=== PATIENT | male | born 1960 | race Caucasian/White ===

== ENCOUNTER 2018-06-24 03:30 | Observation (INO) ==
[2018-06-24] MEDS ORDERED: Sod Chloride 0.9% Inj 1,000 ML IV.SIG ONE (03:50)
[2018-06-24] MEDS ORDERED: Morphine Inj 4 MG/ML Vial IV.PUSH ONE (03:50)
--- NOTE | 2018-06-24 04:09 | ED ---
HPI General Chief complaint: Medical Clearance Stated complaint: Medical Time Seen by Provider: 06/24/18 03:45 Source: EMS Mode of arrival: EMS Limitations: other (Down syndrome, mental retardation, noncommunicative) History of Present Illness HPI narrative: The history is extremely limited since patient is noncommunicative. As per EMS patient has been leaning forward while sitting up and constantly moaning for past 1 week. There is some questionable constipation history. The moaning and discomfort appear to be worse last night and hence he has been sent to the emergency room to be evaluated. Patient has history of Down syndrome and mental retardation. I was told the family is on their way to see the patient. Related Data Home Medications Medication Instructions Recorded Confirmed guaifenesin [Mucinex] 600 mg PO Q12H 06/24/18 06/24/18 loratadine 10 mg PO DAILY PRN 06/24/18 06/24/18 pantoprazole 40 mg PO DAILY 06/24/18 06/24/18 polyethylene glycol 3350 [Miralax] 17 g PO DAILY 06/24/18 06/24/18 Allergies Allergy/AdvReac Type Severity Reaction Status Date / Time penicillin G Allergy Severe Hives Verified 06/24/18 07:35 Review of Systems ROS Unobtainable ROS Unobtainable: unobtainable due to mental condition ROS: all other systems reviewed are negative PMFSH History History Provided By: Setter Off / EMT Medical History Medical History Down's syndrome (Acute) Family History Family History Other Family history non-contributory Social History Social History Substance History: Unable to Obtain (Nursing reports family mentioned cannabis oil ) Second Hand Smoke Exposure: No Smoking Status: Never smoker How Often Do You Have a Drink Containing Alcohol: Never Recent Travel in [place] within the Last 8 Weeks: No Recent Out of Country Travel within the Last 8 Weeks: No Exam Narrative Exam Narrative: GENERAL: Awake, significant distress, nonverbal, noncommunicative, constant moaning SKIN: Focused skin assessment warm/dry. HEAD: Atraumatic. Normocephalic. EYES: Pupils equal and round. No scleral icterus. No injection or drainage. ENT: No nasal bleeding or discharge. Dry mucous membrane. NECK: Trachea midline. No JVD. CARDIOVASCULAR: Regular rate and rhythm. No murmur appreciated. RESPIRATORY: No accessory muscle use. Clear to auscultation. Breath sounds equal bilaterally. GASTROINTESTINAL: Abdomen soft, non-tender, nondistended. Hepatic and splenic margins not palpable. MUSCULOSKELETAL: No obvious deformities. No clubbing. No cyanosis. No edema. Neurology: Noncommunicative awake and sitting up, leaning forward and constantly moaning PSYCHIATRIC: Anxious Course Initial Documented Vital Signs Pulse Rate 102 H 06/24/18 03:37 Blood Pressure 160/80 H 06/24/18 03:37 Pulse Oximetry 98 06/24/18 03:37 Last Documented Vital Signs Temperature 99.7 F H 06/27/18 19:53 Pulse Rate 101 H 06/27/18 19:53 Respiratory Rate 12 06/27/18 11:22 Blood Pressure 112/63 06/27/18 19:53 Pulse Oximetry 92 L 06/27/18 19:53 Medical Decision Making [facility] [place] Narrative Medical decision making narrative: 4:08 AM it is difficult to obtain any history from this patient given his condition. I have ordered labs and a CT scan of the abdomen and pelvis. He will be getting IV fluid bolus, pain medication and 0.5 mg of Ativan. 5:23 AM blood test results have come back and lipase is elevated. White blood cell count is elevated as well. Patient was given another dose of pain medication. Awaiting for the CAT scan to be done and resulted. I spoke with his mother and sister who are in the room currently. As per them patient has progressively fairing poorly. He has been having shuffling gait for past few weeks. However since 4 PM yesterday he has been constantly moaning like he is in pain and while going to the bathroom just sat down and did not want to get up and walk anymore. This is not his normal self. 6:[address] scan is read as negative with a significantly distended bladder. Family confirmed that patient has not urinated in a while. I have ordered for Crane catheter placement. Since patient required significant amount of pain medication for pain control I decided to admit him as. The hospitalist has accepted the patient. I explained this to the family and they are okay with the decision. Medical Screen Exam Complete: Yes Emergency Medical Condition: Yes Lab Data Result diagrams: 06/27/18 06:46 06/27/18 06:46 Lab Results 06/24/18 06/24/18 06/24/18 Range/Units 04:08 04:08 04:08 WBC 14.1 H (4.0-11.0) th/mm3 RBC 3.94 L (4.50-5.90) mil/mm3 Hgb 13.3 (13.0-17.0) gm/dL Hct 39.6 (39.0-51.0) % MCV 100.7 H (80.0-100.0) fL MCH 33.7 (27.0-34.0) pg MCHC 33.5 (32.0-36.0) % RDW 15.7 (11.6-17.2) % Plt Count 381 (150-450) th/mm3 MPV 7.5 (7.0-11.0) fL Prelim Diff (Auto) Neut % (Auto) 91.0 H (16.0-70.0) % Lymph % (Auto) 3.6 L (9.0-44.0) % Parke % (Auto) 4.4 (0.0-8.0) % Eos % (Auto) 0.0 (0.0-4.0) % Baso % (Auto) 1.0 (0.0-2.0) % Neut # (Auto) 12.8 H (1.8-7.7) th/mm3 Lymph # (Auto) 0.5 L (1.0-4.8) th/mm3 Parke # (Auto) 0.6 (0.0-0.9) th/mm3 Eos # (Auto) 0.0 (0.0-0.4) th/mm3 Baso # (Auto) 0.1 (0.0-0.2) th/mm3 WBC Differential . Seg Neuts % (Manual) (16-70) % Band Neuts % (Manual) (0-6) % Lymphocytes % (Manual) (9-44) % Monocytes % (Manual) (0-8) % Abs Neuts (Manual) (1.8-7.7) th/mm3 Differential Comment Auto diff final Platelet Estimate (Normal) Platelet Morphology (Normal) Sodium 135 L (136-145) meq/L Potassium 4.5 (3.5-5.1) meq/L Chloride 98 (98-107) meq/L Carbon Dioxide 21.5 (21.0-32.0) meq/L Anion Gap 16 H (5-15) meq/L BUN 13 (7-18) mg/dL Creatinine 1.45 H (0.60-1.30) mg/dL Estimated GFR 50 L (>89) mL/min Random Glucose 177 H (74-106) mg/dL Calcium 9.1 (8.5-10.1) mg/dL Magnesium 2.1 (1.5-2.5) mg/dL Total Bilirubin 0.7 (0.2-1.0) mg/dL AST 122 H (15-37) U/L ALT 38 (12-78) U/L Alkaline Phosphatase 80 (45-117) U/L Total Protein 8.2 (6.4-8.2) g/dL Albumin 3.8 (3.4-5.0) g/dL Triglycerides 72 (42-150) mg/dL Cholesterol 148 (120-200) mg/dL LDL Cholesterol, Calc 70 (0-99) mg/dL HDL Cholesterol 63.9 H (40.0-60.0) mg/dL Cholesterol/HDL Ratio 2.31 Ratio Lipase 762 H (73-393) U/L Urine Color (Yellw/Straw) Urine Clarity (Clear) Urine pH (5.0-8.5) Ur Specific [place] (1.002-1.035) Urine Protein (Neg-Trace) mg/dL Urine Glucose (UA) (Negative) mg/dL Urine Ketones (Negative) mg/dL Urine Occult Blood (Negative) Urine Nitrate (Negative) Urine Bilirubin (Negative) Urine Urobilinogen (Less than 2) mg/dL Ur Leukocyte Esterase (Negative) Urine RBC (0-3) /hpf Urine WBC (0-5) /hpf Urine Mucus (Occasional) /lpf Micro UA Comment Ur Microscopic Review Urine Culture Comments Hepatitis A IgM Ab (Nonreactive) Hep Bs Antigen (Nonreactive) Hep B Core IgM Ab (Nonreactive) Hep C IgG Ab (Nonreactive) 06/24/18 06/25/18 06/25/18 Range/Units 06:40 04:15 04:15 WBC 7.7 (4.0-11.0) th/mm3 RBC 3.11 L (4.50-5.90) mil/mm3 Hgb 10.8 L D (13.0-17.0) gm/dL Hct 30.8 L (39.0-51.0) % MCV 99.0 (80.0-100.0) fL MCH 34.9 H (27.0-34.0) pg MCHC 35.2 (32.0-36.0) % RDW 15.7 (11.6-17.2) % Plt Count 241 D (150-450) th/mm3 MPV 7.1 (7.0-11.0) fL Prelim Diff (Auto) Manual diff required Neut % (Auto) (16.0-70.0) % Lymph % (Auto) (9.0-44.0) % Parke % (Auto) (0.0-8.0) % Eos % (Auto) (0.0-4.0) % Baso % (Auto) (0.0-2.0) % Neut # (Auto) (1.8-7.7) th/mm3 Lymph # (Auto) (1.0-4.8) th/mm3 Parke # (Auto) (0.0-0.9) th/mm3 Eos # (Auto) (0.0-0.4) th/mm3 Baso # (Auto) (0.0-0.2) th/mm3 WBC Differential Manual diff final Seg Neuts % (Manual) 80 H (16-70) % Band Neuts % (Manual) 5 (0-6) % Lymphocytes % (Manual) 9 (9-44) % Monocytes % (Manual) 6 (0-8) % Abs Neuts (Manual) 6.5 (1.8-7.7) th/mm3 Differential Comment . Platelet Estimate Normal (Normal) Platelet Morphology Normal (Normal) Sodium 140 (136-145) meq/L Potassium 3.8 (3.5-5.1) meq/L Chloride 103 (98-107) meq/L Carbon Dioxide 29.2 (21.0-32.0) meq/L Anion Gap 8 (5-15) meq/L BUN 7 (7-18) mg/dL Creatinine 1.05 (0.60-1.30) mg/dL Estimated GFR 73 L (>89) mL/min Random Glucose 107 H (74-106) mg/dL Calcium 8.0 L D (8.5-10.1) mg/dL Magnesium (1.5-2.5) mg/dL Total Bilirubin 0.4 (0.2-1.0) mg/dL AST 156 H (15-37) U/L ALT 44 (12-78) U/L Alkaline Phosphatase 56 (45-117) U/L Total Protein 6.0 L D (6.4-8.2) g/dL Albumin 2.6 L D (3.4-5.0) g/dL Triglycerides (42-150) mg/dL Cholesterol (120-200) mg/dL LDL Cholesterol, Calc (0-99) mg/dL HDL Cholesterol (40.0-60.0) mg/dL Cholesterol/HDL Ratio Ratio Lipase 538 H (73-393) U/L Urine Color Cuming (Yellw/Straw) Urine Clarity Clear (Clear) Urine pH 5.0 (5.0-8.5) Ur Specific [place] 1.011 (1.002-1.035) Urine Protein Negative (Neg-Trace) mg/dL Urine Glucose (UA) Negative (Negative) mg/dL Urine Ketones Negative (Negative) mg/dL Urine Occult Blood Negative (Negative) Urine Nitrate Positive H (Negative) Urine Bilirubin Negative (Negative) Urine Urobilinogen 4 or greater (Less than 2) mg/dL Ur Leukocyte Esterase Negative (Negative) Urine RBC Less than 1 (0-3) /hpf Urine WBC 1 (0-5) /hpf Urine Mucus Few H (Occasional) /lpf Micro UA Comment Culture indicated Ur Microscopic Review Not Reportable Urine Culture Comments Culture indicated Hepatitis A IgM Ab (Nonreactive) Hep Bs Antigen (Nonreactive) Hep B Core IgM Ab (Nonreactive) Hep C IgG Ab (Nonreactive) 06/25/18 06/26/18 06/26/18 Range/Units 12:28 05:35 05:35 WBC 10.4 (4.0-11.0) th/mm3 RBC 3.65 L (4.50-5.90) mil/mm3 Hgb 12.9 L D (13.0-17.0) gm/dL Hct 36.0 L (39.0-51.0) % MCV 98.8 (80.0-100.0) fL MCH 35.3 H (27.0-34.0) pg MCHC 35.8 (32.0-36.0) % RDW 15.3 (11.6-17.2) % Plt Count 265 (150-450) th/mm3 MPV 7.5 (7.0-11.0) fL Prelim Diff (Auto) Neut % (Auto) 80.3 H (16.0-70.0) % Lymph % (Auto) 8.3 L (9.0-44.0) % Parke % (Auto) 11.0 H (0.0-8.0) % Eos % (Auto) 0.1 (0.0-4.0) % Baso % (Auto) 0.3 (0.0-2.0) % Neut # (Auto) 8.3 H (1.8-7.7) th/mm3 Lymph # (Auto) 0.9 L (1.0-4.8) th/mm3 Parke # (Auto) 1.1 H (0.0-0.9) th/mm3 Eos # (Auto) 0.0 (0.0-0.4) th/mm3 Baso # (Auto) 0.0 (0.0-0.2) th/mm3 WBC Differential . Seg Neuts % (Manual) (16-70) % Band Neuts % (Manual) (0-6) % Lymphocytes % (Manual) (9-44) % Monocytes % (Manual) (0-8) % Abs Neuts (Manual) (1.8-7.7) th/mm3 Differential Comment Auto diff final Platelet Estimate (Normal) Platelet Morphology (Normal) Sodium 138 (136-145) meq/L Potassium 3.5 (3.5-5.1) meq/L Chloride 98 (98-107) meq/L Carbon Dioxide 29.7 (21.0-32.0) meq/L Anion Gap 10 (5-15) meq/L BUN 5 L (7-18) mg/dL Creatinine 0.85 (0.60-1.30) mg/dL Estimated GFR Greater than 89 (>89) mL/min Random Glucose 106 (74-106) mg/dL Calcium 8.2 L (8.5-10.1) mg/dL Magnesium (1.5-2.5) mg/dL Total Bilirubin 0.7 (0.2-1.0) mg/dL AST 115 H (15-37) U/L ALT 51 (12-78) U/L Alkaline Phosphatase 69 (45-117) U/L Total Protein 6.8 D (6.4-8.2) g/dL Albumin 2.6 L (3.4-5.0) g/dL Triglycerides (42-150) mg/dL Cholesterol (120-200) mg/dL LDL Cholesterol, Calc (0-99) mg/dL HDL Cholesterol (40.0-60.0) mg/dL Cholesterol/HDL Ratio Ratio Lipase 491 H (73-393) U/L Urine Color (Yellw/Straw) Urine Clarity (Clear) Urine pH (5.0-8.5) Ur Specific [place] (1.002-1.035) Urine Protein (Neg-Trace) mg/dL Urine Glucose (UA) (Negative) mg/dL Urine Ketones (Negative) mg/dL Urine Occult Blood (Negative) Urine Nitrate (Negative) Urine Bilirubin (Negative) Urine Urobilinogen (Less than 2) mg/dL Ur Leukocyte Esterase (Negative) Urine RBC (0-3) /hpf Urine WBC (0-5) /hpf Urine Mucus (Occasional) /lpf Micro UA Comment Ur Microscopic Review Urine Culture Comments Hepatitis A IgM Ab Nonreactive (Nonreactive) Hep Bs Antigen Nonreactive (Nonreactive) Hep B Core IgM Ab Nonreactive (Nonreactive) Hep C IgG Ab Nonreactive (Nonreactive) 06/27/18 06/27/18 Range/Units 06:46 06:46 WBC 8.4 (4.0-11.0) th/mm3 RBC 3.81 L (4.50-5.90) mil/mm3 Hgb 12.9 L (13.0-17.0) gm/dL Hct 38.1 L (39.0-51.0) % MCV 100.2 H (80.0-100.0) fL MCH 33.9 (27.0-34.0) pg MCHC 33.8 (32.0-36.0) % RDW 15.1 (11.6-17.2) % Plt Count 253 (150-450) th/mm3 MPV 7.5 (7.0-11.0) fL Prelim Diff (Auto) Neut % (Auto) 76.7 H (16.0-70.0) % Lymph % (Auto) 11.6 (9.0-44.0) % Parke % (Auto) 11.0 H (0.0-8.0) % Eos % (Auto) 0.2 (0.0-4.0) % Baso % (Auto) 0.5 (0.0-2.0) % Neut # (Auto) 6.4 (1.8-7.7) th/mm3 Lymph # (Auto) 1.0 (1.0-4.8) th/mm3 [place]ke # (Auto) 0.9 (0.0-0.9) th/mm3 Eos # (Auto) 0.0 (0.0-0.4) th/mm3 Baso # (Auto) 0.0 (0.0-0.2) th/mm3 WBC Differential . Seg Neuts % (Manual) (16-70) % Band Neuts % (Manual) (0-6) % Lymphocytes % (Manual) (9-44) % Monocytes % (Manual) (0-8) % Abs Neuts (Manual) (1.8-7.7) th/mm3 Differential Comment Auto diff final Platelet Estimate (Normal) Platelet Morphology (Normal) Sodium 135 L (136-145) meq/L Potassium 3.4 L (3.5-5.1) meq/L Chloride 96 L (98-107) meq/L Carbon Dioxide 31.1 (21.0-32.0) meq/L Anion Gap 8 (5-15) meq/L BUN 9 (7-18) mg/dL Creatinine 0.88 (0.60-1.30) mg/dL Estimated GFR Greater than 89 (>89) mL/min Random Glucose 129 H (74-106) mg/dL Calcium 8.4 L (8.5-10.1) mg/dL Magnesium (1.5-2.5) mg/dL Total Bilirubin 0.9 (0.2-1.0) mg/dL AST 58 H (15-37) U/L ALT 40 (12-78) U/L Alkaline Phosphatase 72 (45-117) U/L Total Protein 6.9 (6.4-8.2) g/dL Albumin 2.4 L (3.4-5.0) g/dL Triglycerides (42-150) mg/dL Cholesterol (120-200) mg/dL LDL Cholesterol, Calc (0-99) mg/dL HDL Cholesterol (40.0-60.0) mg/dL Cholesterol/HDL Ratio Ratio Lipase 382 (73-393) U/L Urine Color (Yellw/Straw) Urine Clarity (Clear) Urine pH (5.0-8.5) Ur Specific [place] (1.002-1.035) Urine Protein (Neg-Trace) mg/dL Urine Glucose (UA) (Negative) mg/dL Urine Ketones (Negative) mg/dL Urine Occult Blood (Negative) Urine Nitrate (Negative) Urine Bilirubin (Negative) Urine Urobilinogen (Less than 2) mg/dL Ur Leukocyte Esterase (Negative) Urine RBC (0-3) /hpf Urine WBC (0-5) /hpf Urine Mucus (Occasional) /lpf Micro UA Comment Ur Microscopic Review Urine Culture Comments Hepatitis A IgM Ab (Nonreactive) Hep Bs Antigen (Nonreactive) Hep B Core IgM Ab (Nonreactive) Hep C IgG Ab (Nonreactive) Imaging Data Radiologist's impression: Abdomen/Pelvis CT 06/24/18 03:50 CONCLUSION: 1. No acute abnormality. Chest X-Ray 06/24/18 03:51 CONCLUSION: Negative examination. Discharge Plan Discharge Disposition Patient Disposition: 30 Still Patient Physicians Team ED Provider: Rich Olsen Primary Care Provider: Julian Guerrero Attending Provider: Julian Guerrero Other Providers: Arabella Garcia Status ED Status: Left Department Discharge Information Discharge Date/Time: 06/24/18 08:50
[2018-06-24 04:23] LABS: Baso # (Auto) 0.1 th/mm3 (0.0-0.2); Hematocrit 39.6 % (39.0-51.0); Hemoglobin 13.3 gm/dL (13.0-17.0); Lymph # (Auto) 0.5 th/mm3 (1.0-4.8); Lymph % (Auto) 3.6 % (9.0-44.0); Mean Corpuscular HGB Conc 33.5 % (32.0-36.0); Mean Corpuscular Hemoglobin 33.7 pg (27.0-34.0); Mean Corpuscular Volume 100.7 fL (80.0-100.0); Mean Platelet Volume 7.5 fL (7.0-11.0); Mono # (Auto) 0.6 th/mm3 (0.0-0.9); Mono % (Auto) 4.4 % (0.0-8.0); Neut # (Auto) 12.8 th/mm3 (1.8-7.7); Platelet Count 381 th/mm3 (150-450); Red Blood Count 3.94 mil/mm3 (4.50-5.90); Red Cell Distribution Width 15.7 % (11.6-17.2); White Blood Count 14.1 th/mm3 (4.0-11.0)
[2018-06-24] MEDS ORDERED: Morphine Sulfate Inj 8 MG/ML Vial IV.PUSH ONE (04:38)
[2018-06-24 04:41] LABS: Alkaline Phosphatase 80 U/L (45-117); Total Protein 8.2 g/dL (6.4-8.2)
[2018-06-24 04:51] LABS: Alanine Aminotransferase 38 U/L (12-78); Albumin 3.8 g/dL (3.4-5.0); Anion Gap 16 meq/L (5-15); Aspartate Aminotransferase 122 U/L (15-37); Blood Urea Nitrogen 13 mg/dL (7-18); Calcium 9.1 mg/dL (8.5-10.1); Carbon Dioxide 21.5 meq/L (21.0-32.0); Chloride 98 meq/L (98-107); Glomerular Filtration Rate 50 mL/min (>89); Glucose,Random 177 mg/dL (74-106); Lipase 762 U/L (73-393); Magnesium 2.1 mg/dL (1.5-2.5); Potassium 4.5 meq/L (3.5-5.1); Sodium 135 meq/L (136-145)
[2018-06-24] MEDS ORDERED: HYDROmorphone PF Inj 2 MG/ML Vial IV.PUSH ONE (05:40)
--- NOTE | 2018-06-24 06:40 | CT ---
EXAM DATE: 06/24/2018 6:13 AM EST AGE/SEX: 58 years / Male INDICATIONS: Abdominal pain. CLINICAL DATA: This is the patient's initial encounter. Patient reports that signs and symptoms have been present for 1 day and indicates a pain score of Nonresponsive. MEDICAL/SURGICAL HISTORY: Dementia. Down Syndrome None. RADIATION DOSE: 10.03 CTDI (mGy) COMPARISON: No prior exams available for comparison. TECHNIQUE: Multiple contiguous axial images were obtained through the abdomen. Images were obtained using multiple row detector helical technique. Using automated exposure control and adjustment of the mA and/or kV according to patient size, radiation dose was kept as low as reasonably achievable to o btain optimal diagnostic quality images. DICOM format image data is available electronically for rev iew and comparison. FINDINGS: Lower Lungs: The visualized lower lungs are clear. Liver: The liver has a homogeneous density without space-occupying lesion. There is no dilation of th e biliary tree. Gallbladder is unremarkable. Spleen: Homogeneous density without enlargement. Pancreas: Unremarkable without mass or calcification. 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 Kidneys: Normal in size and shape. No evidence of mass or hydronephrosis. Adrenal Glands: Unremarkable. Aorta: The aorta and proximal iliac vessels are grossly unremarkable without aneurysmal dilation. Bowel/Mesentery: The bowel loops are grossly unremarkable. The cecum and sigmoid colon have a normal configuration. Abdominal Wall: Tiny ventral hernia containing omental fat within the infraumbilical region.. Retroperitoneum: No evidence of adenopathy in the retrocrural, para-aortic, or deep pelvic regions. Bladder: Contours are smooth. Reproductive Organs: No abnormal masses or calcifications seen. Inguinal: The inguinal region is unremarkable without evidence of adenopathy. Bony Structures: Unremarkable. CONCLUSION: 1. No acute abnormality. Electronically signed by: Brandin Tovar MD 06/24/2018 6:38 AM EST
--- NOTE | 2018-06-24 06:48 | XR ---
EXAM DATE: 06/24/2018 6:01 AM EST AGE/SEX: 58 years / Male INDICATIONS: Chest pain. CLINICAL DATA: This is the patient's initial encounter. Patient reports that signs and symptoms have been present for 4 - 6 days and indicates a pain score of 10/10. MEDICAL/SURGICAL HISTORY: . Downs Syndrome None. COMPARISON: [facility], XR CHEST PA AND LAT, 02/05/2016. . FINDINGS: A single AP view of the chest demonstrates the lungs to be symmetrically aerated without evidence of mass, infiltrate or effusion. The cardiomediastinal contours are unremarkable. Osseous structures a re intact. CONCLUSION: Negative examination. Electronically signed by: Brandin Tovar MD 06/24/2018 6:46 AM EST
[2018-06-24] MEDS ORDERED: Bisacodyl 10 MG Supp RECTAL PRN (06:51)
[2018-06-24] MEDS ORDERED: Acetaminophen 325 MG Tablet PO PRN (06:51)
[2018-06-24] MEDS ORDERED: HYDROmorphone PF Inj 2 MG/ML Vial IV.PUSH PRN (06:53)
[2018-06-24] MEDS ORDERED: Pantoprazole Inj 40 MG Vial IV.PUSH SCH (07:00)
[2018-06-24 07:03] LABS: Bilirubin,Urine Negative (Negative); Clarity,Urine Clear (Clear); Color,Urine Orange (Yellw/Straw); Glucose,Urine (UA) Negative (Negative); Leukocyte Esterase,Urine Negative (Negative); Mucus,Urine Few /lpf (Occasional); Nitrite,Urine Positive (Negative); Specific Gravity,Urine 1.011 (1.002-1.035); Urobilinogen,Urine 4 or Greater mg/dL (Less than 2)
[2018-06-24] MEDS: Sod Chloride 0.9% Inj 1,000 ML IV.CONT SCH ×2 (07:07→16:08)
[2018-06-24] MEDS: Senna/Docusate Sodium 8.6/50 MG Tablet PO SCH ×2 (09:33→20:14)
--- NOTE | 2018-06-24 10:53 | P.HPIM ---
History of Present Illness Service: [facility] Primary Care Physician: Julian Guerrero MD History of Present Illness: 58-year-old male with Down syndrome brought in by EMS. The patient cannot contribute to the history. History obtained from EMR and family members at bedside. Apparently he has been having what appeared to be abdominal discomfort for the past week and has been leaning forward while sitting up. Family report the pain seemed to have gotten worse yesterday which prompted the ED visit. Workup in the emergency room is suggestive of acute pancreatitis and UTI. The patient was also retaining urine, Crane catheter has been placed. Patient received Ativan, morphine, and Dilaudid in the emergency room and is currently sedated. There has been no reports of vomiting. No new medications. However per discussion with nursing, there was some mention of over-the- counter cannabis oil but the family at bedside today denies any new medications. - Diagnosis (1) Acute pancreatitis (2) UTI (urinary tract infection) Review of Systems unobtainable due to mental status PMFSH - History History Provided By: Family Member - Medical History Medical History: Medical History (Last Reviewed 06/24/18 @ 13:55 by Abdullahi Springer MD) Dementia Developmental disability Down's syndrome Peptic ulcer Seasonal allergies - Family History Family History: Family History (Last Updated 06/24/18 @ 13:56 by Abdullahi Springer MD) Other Family history non-contributory - Social History I have reviewed the patient's Social History: Yes - Tobacco History Second Hand Smoke Exposure: No Smoking Status: Never smoker - Alcohol History How Often Do You Have a Drink Containing Alcohol: Never - Substance Use History Substance History: Unable to Obtain (Nursing reports family mentioned cannabis oil ) - Travel History Recent Travel in the [place] Within the Last 8 Weeks: No Recent Travel Out of the Country Within the Last 8 Weeks: No - Immunization History Tetanus Immunization: >5 Years Medications and Allergies Active Medications: Active Medications Acetaminophen (Tylenol) 650 mg PO Q4H PRN PRN Reason: Temp > 100.4 Al Hydroxide/Mg Hydroxide (Milk Of Magnesia Liq) 30 ml PO Q12H PRN PRN Reason: Mild Constipation Bisacodyl (Dulcolax Supp) 10 mg RECTAL DAILY PRN PRN Reason: SEVERE CONSITIPATION Hydromorphone HCl (Dilaudid Pf Inj) 1 mg IV.PUSH Q4H PRN PRN Reason: PAIN 6-10 Sodium Chloride (Ns Inj) 1,000 mls @ 100 mls/hr IV.CONT .Q10H [facility] Last Admin: 06/24/18 07:07 Dose: 100 mls/hr Lactulose (Lactulose Liq) 30 ml PO DAILY PRN PRN Reason: SEVERE CONSITIPATION Ondansetron HCl (Zofran Inj) 4 mg IV.PUSH Q6H PRN PRN Reason: NAUSEA OR VOMITING Pantoprazole Sodium (Protonix Inj) 40 mg IV.PUSH Q12H [facility] Last Admin: 06/24/18 07:07 Dose: 40 mg Senna/Docusate Sodium (Taya-Colace) 1 tab PO BID [facility] Last Admin: 06/24/18 09:33 Dose: Not Given Sennosides (Senokot) 17.2 mg PO Q12H PRN PRN Reason: Moderate Constipation Sodium Chloride (Ns Flush) 2 ml IV.FLUSH PRN PRN PRN Reason: FLUSH AFTER USING IV ACCESS Allergies Allergy/AdvReac Type Severity Reaction Status Date / Time penicillin G Allergy Severe Hives Verified 06/24/18 07:35 Home Medications Medication Instructions Recorded Confirmed Type guaifenesin [Mucinex] 600 mg PO Q12H 06/24/18 06/24/18 History loratadine 10 mg PO DAILY PRN 06/24/18 06/24/18 History pantoprazole 40 mg PO DAILY 06/24/18 06/24/18 History polyethylene glycol 3350 [Miralax] 17 g PO DAILY 06/24/18 06/24/18 History Exam Vital signs: Vital Signs 06/24/18 03:37 06/24/18 04:00 06/24/18 04:30 Temperature Pulse Rate 102 H 107 H Respiratory Rate 22 22 Blood Pressure 160/80 H 183/102 H Pulse Oximetry 98 97 06/24/18 05:13 06/24/18 05:45 06/24/18 05:56 Temperature Pulse Rate 105 H 104 H 82 Respiratory Rate 15 20 18 Blood Pressure 190/85 H 155/109 H 100/50 L Pulse Oximetry 97 97 95 06/24/18 06:20 06/24/18 07:00 06/24/18 08:15 Temperature Pulse Rate 77 79 Respiratory Rate 16 18 16 Blood Pressure 94/55 L 90/52 L Pulse Oximetry 97 98 06/24/18 08:46 06/24/18 08:59 06/24/18 09:11 Temperature 97.8 F Pulse Rate 79 Respiratory Rate 16 18 Blood Pressure 98/54 L Pulse Oximetry 92 L 91 L Intake & Output 06/23/18 06/24/18 06/24/18 18:59 06:59 18:59 Intake Total 1000 / 1000 Output Total 725 / 725 Balance 275 / 275 Weight 77.111 kg Intake: IV 1000 / 1000 NS Inj 1,000 ML @ Wide Open IV. 1000 / 1000 SIG BOLUS ONE Rx#:[id number] Output: Urine Amount (Catheter) 725 / 725 Indwelling Urethral Catheter 725 / 725 Other: Weight On Admission 77.111 kg Narrative: GENERAL: Male patient with features of Down syndrome. Sedated. CARDIOVASCULAR: Normal rate and regular rhythm without murmurs, gallops, or rubs. RESPIRATORY:Breath sounds equal and clear to auscultation bilaterally. GASTROINTESTINAL: Abdomen soft, non-tender, non-distended. Normal active bowel sounds MUSCULOSKELETAL: Extremities without cyanosis, or edema. NEURO: Sedated. Results - Labs CBC & Chem 7: 06/24/18 04:08 06/24/18 04:08 Labs: Short CBC 06/24/18 Range/Units 04:08 WBC 14.1 H (4.0-11.0) th/mm3 Hgb 13.3 (13.0-17.0) gm/dL Hct 39.6 (39.0-51.0) % Plt Count 381 (150-450) th/mm3 BMP 06/24/18 04:08 Sodium 135 L Potassium 4.5 Chloride 98 Carbon Dioxide 21.5 BUN 13 Creatinine 1.45 H Calcium 9.1 Liver Function 06/24/18 Range/Units 04:08 Total Bilirubin 0.7 (0.2-1.0) mg/dL AST 122 H (15-37) U/L ALT 38 (12-78) U/L Alkaline Phosphatase 80 (45-117) U/L Albumin 3.8 (3.4-5.0) g/dL Urine 06/24/18 Range/Units 06:40 Urine Color [place] (Yellw/Straw) Urine Clarity Clear (Clear) Urine pH 5.0 (5.0-8.5) Ur Specific [place] 1.011 (1.002-1.035) Urine Protein Negative (Neg-Trace) mg/dL Urine Glucose (UA) Negative (Negative) mg/dL - Imaging Impressions Abdomen/Pelvis CT 06/24/18 03:50 CONCLUSION: 1. No acute abnormality. Chest X-Ray 06/24/18 03:51 CONCLUSION: Negative examination. Caprini VTE Risk Assessment Caprini VTE Risk Assessment: Moderate/High Risk (score >= 2) Caprini Risk Assessment Model: Point Value = 1 Point Value = 2 Point Value = 3 Point Value = 5 Age 41-60 Minor surgery BMI > 25 kg/m2 Swollen legs Varicose veins or History of unexplained or recurrent spontaneous Oral contraceptives or hormone replacement Sepsis (< 1 month) Serious lung disease, including pneumonia (< 1 month) Abnormal pulmonary function Acute myocardial infarction Congestive heart failure (< 1 month) History of inflammatory bowel disease Medical patient at bed rest Age 61-74 Arthroscopic surgery Major open surgery (> 45 min) Laparoscopic surgery (> 45 min) Malignancy Confined to bed (> 72 hours) Immobilizing plaster cast Central venous access Age >= 75 History of VTE Family history of VTE Factor V Leiden Prothrombin [id number] Lupus anticoagulant Anticardiolipin antibodies Elevated serum homocysteine Heparin-induced thrombocytopenia Other congenital or acquired thrombophilia Stroke (< 1 month) Elective arthroplasty Hip, pelvis, or leg fracture Acute spinal cord injury (< 1 month) Prophylaxis Regimen: Total Risk Factor Score Risk Level Prophylaxis Regimen 0-1 Low Early ambulation 2 Moderate Order ONE of the following: *Sequential Compression Device (SCD) *Heparin 5000 units SQ BID 3-4 Higher Order ONE of the following medications: *Heparin 5000 units SQ TID *Enoxaparin/Lovenox 40 mg SQ daily (WT < 150 kg, CrCl > 30 mL/min) *Enoxaparin/Lovenox 30 mg SQ daily (WT < 150 kg, CrCl > 10-29 mL/min) *Enoxaparin/Lovenox 30 mg SQ BID (WT < 150 kg, CrCl > 30 mL/min) AND/OR *Sequential Compression Device (SCD) 5 or more Highest Order ONE of the following medications: *Heparin 5000 units SQ TID (Preferred with Epidurals) *Enoxaparin/Lovenox 40 mg SQ daily (WT < 150 kg, CrCl > 30 mL/min) *Enoxaparin/Lovenox 30 mg SQ daily (WT < 150 kg, CrCl > 10-29 mL/min) *Enoxaparin/Lovenox 30 mg SQ BID (WT < 150 kg, CrCl > 30 mL/min) AND *Sequential Compression Device (SCD) Assessment and Plan - Assessment (1) Acute pancreatitis Code(s): K85.90 - Acute pancreatitis without necrosis or infection, unspecified Status: Acute (2) UTI (urinary tract infection) Code(s): N39.0 - Urinary tract infection, site not specified Status: Acute - Plan 58-year-old male with Down syndrome admitted with acute pancreatitis and UTI. Acute pancreatitis: Etiology unclear at this point. No new medications except for cannabis oil use reported to the nurse. Content of these medications are unknown as they are not currently regulated. - Check lipids - CT of the abdomen unremarkable. - Supportive care with IV fluid. Pain control. - Keep n.p.o. for today. Abnormal urinalysis: - Unable to tell if he is having symptoms. - Will give a dose of Levaquin now - Follow urine cultures GI prophylaxis: PPI. Stool softener PRN constipation. DVT PPx: SCDs H&P: Quality - VTE Deep Vein Thrombosis/Pulmonary Embolism Present on Admission: Yes
[2018-06-24 12:40] LABS: Chol/HDL Ratio 2.31 Ratio; HDL Cholesterol 63.9 mg/dL (40.0-60.0)
[2018-06-25] MEDS: Sod Chloride 0.9% Inj 1,000 ML IV.CONT SCH ×2 (02:17→13:14)
[2018-06-25 04:37] LABS: Hematocrit 30.8 % (39.0-51.0); Hemoglobin 10.8 gm/dL (13.0-17.0); Mean Corpuscular HGB Conc 35.2 % (32.0-36.0); Mean Corpuscular Hemoglobin 34.9 pg (27.0-34.0); Mean Platelet Volume 7.1 fL (7.0-11.0); Platelet Count 241 th/mm3 (150-450); Red Blood Count 3.11 mil/mm3 (4.50-5.90); Red Cell Distribution Width 15.7 % (11.6-17.2); White Blood Count 7.7 th/mm3 (4.0-11.0)
[2018-06-25 05:05] LABS: Alanine Aminotransferase 44 U/L (12-78); Albumin 2.6 g/dL (3.4-5.0); Alkaline Phosphatase 56 U/L (45-117); Anion Gap 8 meq/L (5-15); Aspartate Aminotransferase 156 U/L (15-37); Blood Urea Nitrogen 7 mg/dL (7-18); Carbon Dioxide 29.2 meq/L (21.0-32.0); Chloride 103 meq/L (98-107); Glomerular Filtration Rate 73 mL/min (>89); Glucose,Random 107 mg/dL (74-106); Lipase 538 U/L (73-393); Potassium 3.8 meq/L (3.5-5.1); Sodium 140 meq/L (136-145)
[2018-06-25] MEDS: Senna/Docusate Sodium 8.6/50 MG Tablet PO SCH ×2 (08:19→21:15)
[2018-06-25 08:40] LABS: Lymphocytes 9 % (9-44); Monocytes 6 % (0-8)
[2018-06-25 08:41] LABS: Platelet Estimate Normal (Normal); Platelet Morphology Normal (Normal)
--- NOTE | 2018-06-25 10:00 | P.PNFP ---
Subjective Interval history: mother and sister at bedside. pt coughing. lethargic, usually walks with assist some Results - Labs Result diagrams: 06/25/18 04:15 06/25/18 04:15 Abnormal lab results 06/24/18 06/25/18 06/25/18 Range/Units 04:08 04:15 04:15 RBC 3.11 L (4.50-5.90) mil/mm3 Hgb 10.8 L D (13.0-17.0) gm/dL Hct 30.8 L (39.0-51.0) % MCH 34.9 H (27.0-34.0) pg Seg Neuts % (Manual) 80 H (16-70) % Estimated GFR 73 L (>89) mL/min Random Glucose 107 H (74-106) mg/dL Calcium 8.0 L D (8.5-10.1) mg/dL AST 156 H (15-37) U/L Total Protein 6.0 L D (6.4-8.2) g/dL Albumin 2.6 L D (3.4-5.0) g/dL HDL Cholesterol 63.9 H (40.0-60.0) mg/dL Lipase 538 H (73-393) U/L Short CBC 06/25/18 Range/Units 04:15 WBC 7.7 (4.0-11.0) th/mm3 Hgb 10.8 L D (13.0-17.0) gm/dL Hct 30.8 L (39.0-51.0) % Plt Count 241 D (150-450) th/mm3 BMP 06/25/18 04:15 Sodium 140 Potassium 3.8 Chloride 103 Carbon Dioxide 29.2 BUN 7 Creatinine 1.05 Calcium 8.0 L D Liver Function 06/25/18 Range/Units 04:15 Total Bilirubin 0.4 (0.2-1.0) mg/dL AST 156 H (15-37) U/L ALT 44 (12-78) U/L Alkaline Phosphatase 56 (45-117) U/L Albumin 2.6 L D (3.4-5.0) g/dL Physical Exam Vital signs: Vital Signs 06/24/18 12:00 06/24/18 15:43 06/24/18 20:00 Temperature 98.1 F 97.8 F 99.0 F Pulse Rate 85 96 H 96 H Respiratory Rate 16 18 16 Blood Pressure 105/55 L 122/73 126/80 Pulse Oximetry 99 97 98 06/25/18 00:00 06/25/18 02:10 06/25/18 04:00 Temperature 99.3 F 97.9 F Pulse Rate 86 84 Respiratory Rate 18 16 18 Blood Pressure 105/69 101/69 Pulse Oximetry 99 98 06/25/18 08:00 06/25/18 09:53 Temperature 98.5 F Pulse Rate 96 H Respiratory Rate 18 18 Blood Pressure 119/69 Pulse Oximetry 96 Intake & Output 06/24/18 06/25/18 06/25/18 18:59 06:59 18:59 Intake Total 1150 / 1150 1720 / 1720 Output Total 700 / 700 600 / 600 Balance 450 / 450 1120 / 1120 Weight 77.111 kg Intake: IV 1150 / 1150 1000 / 1000 NS Inj 1,000 ML @ 100 mls/hr IV 1000 / 1000 1000 / 1000 .CONT .Q10H [facility] Rx#:[id number] Levaquin 750 mg Premix Inj 150 150 / 150 ML @ 100 mls/hr IV.SIG ONCE ONE Rx#:[id number] Oral 720 / 720 Output: Urine Amount (Catheter) 700 / 700 600 / 600 Indwelling Urethral Catheter 700 / 700 600 / 600 Other: Date of Last Bowel Movement 06/24/18 06/24/18 06/24/18 Weight On Admission 77.111 kg - Constitutional chronically ill appearing - Routine HEENT Exam Head: Present: normocephalic, atraumatic - Routine Neck Exam Present: normal carotid upstroke - Routine Respiratory Exam Present: decreased breath sounds, rales, distant breath sounds - Routine Cardiovascular Exam Present: RRR, S1, S2 - Routine Abdominal Exam Present: soft, normoactive bowel sounds - Routine Skin Exam Present: intact - Routine Neurological Exam Present: altered mental status - Detailed Neurological Exam: Coma Scale Eye Opening: To pressure Verbal Response: Sounds - Urinary Catheter Management Indwelling Urethral Catheter Cath placed during this visit: yes Reason for continuing: Acute urinary retention Insertion date: 06/24/18 Insertion time: 06:45 Assessment and Plan - Assessment (1) Acute pancreatitis Code(s): K85.90 - Acute pancreatitis without necrosis or infection, unspecified Status: Acute (2) UTI (urinary tract infection) Code(s): N39.0 - Urinary tract infection, site not specified Status: Acute - Assessment and Plan PANCREATITIS: IVF UTI: IV ABX PUD HYPONATREMIA: IVF, MONITOR AND RECHECK ANEMIA: FOLLOWUP LABS DOWNS
[2018-06-25 13:44] LABS: Hepatitits B Surface Antigen Nonreactive (Nonreactive)
[2018-06-25 14:09] LABS: Hepatitis A IgM Antibody Nonreactive (Nonreactive)
[2018-06-26] MEDS: Sod Chloride 0.9% Inj 1,000 ML IV.CONT SCH ×2 (00:32→10:33)
[2018-06-26] MEDS: Morphine Sulfate Inj 2 MG/ML Vial IV.PUSH PRN ×6 (03:53→23:27)
[2018-06-26 06:54] LABS: Baso % (Auto) 0.3 % (0.0-2.0); Eos % (Auto) 0.1 % (0.0-4.0); Hemoglobin 12.9 gm/dL (13.0-17.0); Lymph # (Auto) 0.9 th/mm3 (1.0-4.8); Lymph % (Auto) 8.3 % (9.0-44.0); Mean Corpuscular HGB Conc 35.8 % (32.0-36.0); Mean Corpuscular Hemoglobin 35.3 pg (27.0-34.0); Mean Corpuscular Volume 98.8 fL (80.0-100.0); Mean Platelet Volume 7.5 fL (7.0-11.0); Mono # (Auto) 1.1 th/mm3 (0.0-0.9); Neut # (Auto) 8.3 th/mm3 (1.8-7.7); Neut % (Auto) 80.3 % (16.0-70.0); Platelet Count 265 th/mm3 (150-450); Red Blood Count 3.65 mil/mm3 (4.50-5.90); Red Cell Distribution Width 15.3 % (11.6-17.2); White Blood Count 10.4 th/mm3 (4.0-11.0)
[2018-06-26 07:28] LABS: Alanine Aminotransferase 51 U/L (12-78); Albumin 2.6 g/dL (3.4-5.0); Anion Gap 10 meq/L (5-15); Aspartate Aminotransferase 115 U/L (15-37); Blood Urea Nitrogen 5 mg/dL (7-18); Calcium 8.2 mg/dL (8.5-10.1); Carbon Dioxide 29.7 meq/L (21.0-32.0); Chloride 98 meq/L (98-107); Glomerular Filtration Rate Greater Than 89 mL/min (>89); Glucose,Random 106 mg/dL (74-106); Lipase 491 U/L (73-393); Potassium 3.5 meq/L (3.5-5.1); Sodium 138 meq/L (136-145)
[2018-06-26 07:31] LABS: Alkaline Phosphatase 69 U/L (45-117); Total Protein 6.8 g/dL (6.4-8.2)
[2018-06-26] MEDS: Senna/Docusate Sodium 8.6/50 MG Tablet PO SCH ×2 (11:32→22:21)
[2018-06-26] MEDS: Dextrose 5%/NaCl 0.45% Inj 1,000 ML IV.SIG SCH (12:39)
--- NOTE | 2018-06-26 16:45 | P.PNFP ---
Subjective Interval history: called by RN, fever 101, extensively discussed with family for 30 min. discussed prognosis, drug reactions, diagnosis, palliation, further plan, consults, reviewed labs and current data with family and nursing. pt lethargic, confused. Results - Labs Result diagrams: 06/26/18 05:35 06/26/18 05:35 Abnormal lab results 06/26/18 06/26/18 Range/Units 05:35 05:35 RBC 3.65 L (4.50-5.90) mil/mm3 Hgb 12.9 L D (13.0-17.0) gm/dL Hct 36.0 L (39.0-51.0) % MCH 35.3 H (27.0-34.0) pg Neut % (Auto) 80.3 H (16.0-70.0) % Lymph % (Auto) 8.3 L (9.0-44.0) % [place] % (Auto) 11.0 H (0.0-8.0) % Neut # (Auto) 8.3 H (1.8-7.7) th/mm3 Lymph # (Auto) 0.9 L (1.0-4.8) th/mm3 [place] # (Auto) 1.1 H (0.0-0.9) th/mm3 BUN 5 L (7-18) mg/dL Calcium 8.2 L (8.5-10.1) mg/dL AST 115 H (15-37) U/L Albumin 2.6 L (3.4-5.0) g/dL Lipase 491 H (73-393) U/L Short CBC 06/26/18 Range/Units 05:35 WBC 10.4 (4.0-11.0) th/mm3 Hgb 12.9 L D (13.0-17.0) gm/dL Hct 36.0 L (39.0-51.0) % Plt Count 265 (150-450) th/mm3 BMP 06/26/18 05:35 Sodium 138 Potassium 3.5 Chloride 98 Carbon Dioxide 29.7 BUN 5 L Creatinine 0.85 Calcium 8.2 L Liver Function 06/26/18 Range/Units 05:35 Total Bilirubin 0.7 (0.2-1.0) mg/dL AST 115 H (15-37) U/L ALT 51 (12-78) U/L Alkaline Phosphatase 69 (45-117) U/L Albumin 2.6 L (3.4-5.0) g/dL Physical Exam Vital signs: Vital Signs 06/25/18 18:55 06/25/18 22:44 06/26/18 00:42 Temperature 98.5 F Pulse Rate 88 78 Respiratory Rate 16 18 16 Blood Pressure 120/66 118/63 Pulse Oximetry 98 06/26/18 04:00 06/26/18 08:00 06/26/18 12:00 Temperature 99.8 F H 100.0 F H Pulse Rate 74 101 H 100 H Respiratory Rate 18 18 18 Blood Pressure 122/58 L 160/85 H 120/76 Pulse Oximetry 99 93 L 95 Intake & Output 06/25/18 06/26/18 06/26/18 18:59 06:59 18:59 Intake Total 1000 / 1000 2500 / 2500 1125 / 1125 Output Total 1500 / 1500 800 / 800 Balance -500 / -500 1700 / 1700 1125 / 1125 Intake: IV 1000 / 1000 1000 / 1000 1125 / 1125 NS Inj 1,000 ML @ 100 mls/hr IV 1000 / 1000 1000 / 1000 1125 / 1125 .CONT .Q10H [facility] Rx#:[id number] Other 1500 / 1500 Output: Urine 800 / 800 Urine Amount (Catheter) 1500 / 1500 Indwelling Urethral Catheter 1500 / 1500 Other: Other Intake Source Saline Solution Date of Last Bowel Movement 06/24/18 06/24/18 - Constitutional somnolent - Routine HEENT Exam Head: Present: normocephalic Eye: Present: EOMI - Routine Neck Exam Present: supple - Routine Respiratory Exam Present: decreased breath sounds, rales, distant breath sounds - Routine Cardiovascular Exam Present: RRR, S1, S2 - Routine Abdominal Exam Present: soft, normoactive bowel sounds - Routine Extremities Exam Present: normal capillary refill - Routine Skin Exam Present: intact, dry - Routine Neurological Exam Present: alert, altered mental status - Detailed Neurological Exam: Coma Scale Eye Opening: To pressure - Routine Psychiatric Exam Present: unable to assess - Urinary Catheter Management Indwelling Urethral Catheter Cath placed during this visit: yes Urethral indwelling: Yes Reason for continuing: Acute urinary retention Insertion date: 06/24/18 Insertion time: 06:45 Assessment and Plan - Assessment (1) Acute pancreatitis Code(s): K85.90 - Acute pancreatitis without necrosis or infection, unspecified Status: Acute (2) UTI (urinary tract infection) Code(s): N39.0 - Urinary tract infection, site not specified Status: Acute - Assessment and Plan PANCREATITIS: IVF, NPO, CONSULT GI, UTI: IV ABX fevers: repeat cath ua, change philip PUD SZ HYPONATREMIA: IVF, MONITOR AND RECHECK ANEMIA: FOLLOWUP LABS DOWNS (1) Acute pancreatitis Qualifiers: Pancreatitis type: idiopathic
[2018-06-27] MEDS: Morphine Sulfate Inj 2 MG/ML Vial IV.PUSH PRN ×3 (03:42→23:11)
[2018-06-27] MEDS: Dextrose 5%/NaCl 0.45% Inj 1,000 ML IV.SIG SCH (03:43)
[2018-06-27 07:16] LABS: Baso % (Auto) 0.5 % (0.0-2.0); Eos % (Auto) 0.2 % (0.0-4.0); Hematocrit 38.1 % (39.0-51.0); Hemoglobin 12.9 gm/dL (13.0-17.0); Lymph % (Auto) 11.6 % (9.0-44.0); Mean Corpuscular HGB Conc 33.8 % (32.0-36.0); Mean Corpuscular Hemoglobin 33.9 pg (27.0-34.0); Mean Corpuscular Volume 100.2 fL (80.0-100.0); Mean Platelet Volume 7.5 fL (7.0-11.0); Mono # (Auto) 0.9 th/mm3 (0.0-0.9); Neut # (Auto) 6.4 th/mm3 (1.8-7.7); Neut % (Auto) 76.7 % (16.0-70.0); Platelet Count 253 th/mm3 (150-450); Red Blood Count 3.81 mil/mm3 (4.50-5.90); Red Cell Distribution Width 15.1 % (11.6-17.2); White Blood Count 8.4 th/mm3 (4.0-11.0)
[2018-06-27 07:46] LABS: Albumin 2.4 g/dL (3.4-5.0); Anion Gap 8 meq/L (5-15); Aspartate Aminotransferase 58 U/L (15-37); Blood Urea Nitrogen 9 mg/dL (7-18); Calcium 8.4 mg/dL (8.5-10.1); Carbon Dioxide 31.1 meq/L (21.0-32.0); Chloride 96 meq/L (98-107); Glomerular Filtration Rate Greater Than 89 mL/min (>89); Glucose,Random 129 mg/dL (74-106); Lipase 382 U/L (73-393); Potassium 3.4 meq/L (3.5-5.1); Sodium 135 meq/L (136-145)
[2018-06-27 07:47] LABS: Alanine Aminotransferase 40 U/L (12-78)
[2018-06-27 07:49] LABS: Alkaline Phosphatase 72 U/L (45-117); Total Protein 6.9 g/dL (6.4-8.2)
--- NOTE | 2018-06-27 10:12 | P.PNFP ---
Subjective Interval history: better overall today. here with sister at bedside. GI was in. more alert, eyes open and trachking now. Results - Labs Result diagrams: 06/27/18 06:46 06/27/18 06:46 Abnormal lab results 06/27/18 06/27/18 Range/Units 06:46 06:46 RBC 3.81 L (4.50-5.90) mil/mm3 Hgb 12.9 L (13.0-17.0) gm/dL Hct 38.1 L (39.0-51.0) % MCV 100.2 H (80.0-100.0) fL Neut % (Auto) 76.7 H (16.0-70.0) % [place] % (Auto) 11.0 H (0.0-8.0) % Sodium 135 L (136-145) meq/L Potassium 3.4 L (3.5-5.1) meq/L Chloride 96 L (98-107) meq/L Random Glucose 129 H (74-106) mg/dL Calcium 8.4 L (8.5-10.1) mg/dL AST 58 H (15-37) U/L Albumin 2.4 L (3.4-5.0) g/dL Short CBC 06/27/18 Range/Units 06:46 WBC 8.4 (4.0-11.0) th/mm3 Hgb 12.9 L (13.0-17.0) gm/dL Hct 38.1 L (39.0-51.0) % Plt Count 253 (150-450) th/mm3 BMP 06/27/18 06:46 Sodium 135 L Potassium 3.4 L Chloride 96 L Carbon Dioxide 31.1 BUN 9 Creatinine 0.88 Calcium 8.4 L Liver Function 06/27/18 Range/Units 06:46 Total Bilirubin 0.9 (0.2-1.0) mg/dL AST 58 H (15-37) U/L ALT 40 (12-78) U/L Alkaline Phosphatase 72 (45-117) U/L Albumin 2.4 L (3.4-5.0) g/dL Physical Exam Vital signs: Vital Signs 06/26/18 12:00 06/26/18 16:00 06/26/18 19:35 Temperature 100.0 F H 100.8 F H 100.2 F H Pulse Rate 100 H 85 96 H Respiratory Rate 18 18 20 Blood Pressure 120/76 88/54 L 107/59 L Pulse Oximetry 95 94 L 94 L 06/27/18 00:00 06/27/18 04:00 06/27/18 07:59 Temperature 99.2 F 98.7 F 98.6 F Pulse Rate 90 105 H 103 H Respiratory Rate 14 17 20 Blood Pressure 99/55 L 102/74 127/68 Pulse Oximetry 94 L 95 94 L Intake & Output 06/26/18 06/27/18 06/27/18 18:59 06:59 18:59 Intake Total 1125 / 1125 2650 / 2650 Output Total 1999 / 1999 Balance 1125 / 1125 650 / 650 Intake: IV 1125 / 1125 1150 / 1150 NS Inj 1,000 ML @ 100 mls/hr IV 1125 / 1125 .CONT .Q10H [facility] Rx#:[id number] D5W/1/2 NS Inj 1,000 ML @ 70 1000 / 1000 mls/hr IV.SIG .[id number] [facility] Rx#: [id number] Levaquin 750 mg Premix Inj 150 150 / 150 ML @ 100 mls/hr IV.SIG Q24H [facility] Rx#:[id number] Other 1500 / 1500 Output: Urine 900 / 900 Urine Amount (Catheter) 1100 / 1100 Indwelling Urethral Catheter 1100 / 1100 Other: Other Intake Source Saline Solution Date of Last Bowel Movement 06/24/18 - Constitutional no acute distress, obese, chronically ill appearing, somnolent - Routine HEENT Exam Head: Present: normocephalic Eye: Present: EOMI, PERRL - Routine Neck Exam Present: full ROM - Routine Respiratory Exam Present: CTA bilaterally, rales, rhonchi - Routine Cardiovascular Exam Present: RRR, S1, S2 - Routine Abdominal Exam Present: soft, normoactive bowel sounds - Routine Extremities Exam Present: pulses intact - Routine Skin Exam Present: intact - Routine Neurological Exam Present: alert, vision grossly intact - Detailed Neurological Exam: Coma Scale Eye Opening: To sound - Routine Psychiatric Exam Present: unable to assess - Urinary Catheter Management Indwelling Urethral Catheter Cath placed during this visit: yes Urethral indwelling: Yes Reason for continuing: Acute urinary retention Insertion date: 06/24/18 Insertion time: 06:45 Assessment and Plan - Assessment (1) Acute pancreatitis Code(s): K85.90 - Acute pancreatitis without necrosis or infection, unspecified Status: Acute (2) UTI (urinary tract infection) Code(s): N39.0 - Urinary tract infection, site not specified Status: Acute - Assessment and Plan PANCREATITIS: IVF, CONSULT GI, starting po today per GI, UTI: IV ABX fevers: repeat cath ua, change philip PUD SZ HYPONATREMIA: IVF, MONITOR AND RECHECK HYPOKALEMIA: ADD TO IVF, RECHECK ANEMIA: FOLLOWUP LABS DOWNS (1) Acute pancreatitis Qualifiers: Pancreatitis type: idiopathic
[2018-06-27] MEDS: Senna/Docusate Sodium 8.6/50 MG Tablet PO SCH ×2 (10:46→20:12)
--- NOTE | 2018-06-27 12:20 | P.CONGI ---
History of Present Illness Consult date: 06/27/18 Chief complaint: Intractbale abdominal pain, acute pancreatitis, History of Present Illness: This is a 58-year-old male with history of dementia and Down syndrome as well as peptic ulcer disease came into the hospital with family for evaluation of uncontrolled abdominal pain off and on for 3 days. Sister is at his bedside and states that he was doubled over in pain unrelieved 10 out of 10 acute onset , no obvious nausea vomiting or dyspepsia. Patient moans at times but does not speak. Current labs reviewed which showed initial lipase at 762 now 382, normal bilirubin AST 58 ALT 40, alkaline phosphatase 72, albumin 2.4. Patient was noted to have fever on 06/26/[address] done on 06/24/2018 was unremarkable. No family history of colon cancer and no previous EGD or colonoscopy initially diagnosed with idiopathic pancreatitis and GI was consulted. There is no obvious rectal bleeding no hematemesis but patient does appear to have generalized abdominal pain and discomfort. <Reva Jc - Last Filed: 06/27/18 12:15> Review of Systems All other systems reviewed negative except as stated in HPI <Reva Jc - Last Filed: 06/27/18 12:15> PMFSH - History History Provided By: Family Member - Medical History Medical History: Medical History (Last Reviewed 06/24/18 @ 13:55 by Abdullahi Springer MD) Dementia Developmental disability Down's syndrome Peptic ulcer Seasonal allergies - Family History Family History: Family History (Last Updated 06/24/18 @ 13:56 by Abdullahi Springer MD) Other Family history non-contributory - Tobacco History Second Hand Smoke Exposure: No Smoking Status: Never smoker - Alcohol History How Often Do You Have a Drink Containing Alcohol: Never - Substance Use History Substance History: Unable to Obtain (Nursing reports family mentioned cannabis oil ) - Travel History Recent Travel in the [place] Within the Last 8 Weeks: No Recent Travel Out of the Country Within the Last 8 Weeks: No - Immunization History Tetanus Immunization: >5 Years <Reva Jc - Last Filed: 06/27/18 12:15> - Medical History Medical History: Medical History (Last Reviewed 06/24/18 @ 13:55 by Abdullahi Springer MD) Dementia Developmental disability Down's syndrome Peptic ulcer Seasonal allergies - Family History Family History: Family History (Last Updated 06/24/18 @ 13:56 by Abdullahi Springer MD) Other Family history non-contributory <Arabella Garcia - Last Filed: 06/27/18 20:15> Medications and Allergies Active Medications: Active Medications Acetaminophen (Tylenol) 650 mg PO Q4H PRN PRN Reason: Temp > 100.4 Hydrocodone Bitart/Acetaminophen ([place] 10/325) 1 tab PO Q6H PRN PRN Reason: PAIN SCALE 6 TO 10 Last Admin: 06/27/18 11:40 Dose: 1 tab Al Hydroxide/Mg Hydroxide (Milk Of Magnesia Liq) 30 ml PO Q12H PRN PRN Reason: Mild Constipation Bisacodyl (Dulcolax Supp) 10 mg RECTAL DAILY PRN PRN Reason: SEVERE CONSITIPATION Hydromorphone HCl (Dilaudid Pf Inj) 1 mg IV.PUSH Q4H PRN PRN Reason: PAIN 6-10 Levofloxacin/Dextrose (Levaquin 750 Mg Premix Inj) 150 mls @ 100 mls/hr IV.SIG Q24H [facility] Last Infusion: 06/26/18 22:21 Dose: Infused Potassium Chloride 30 meq/ (Sodium Chloride) 1,015 mls @ 42 mls/hr IV.CONT .Q24H [facility] Lactulose (Lactulose Liq) 30 ml PO DAILY PRN PRN Reason: SEVERE CONSITIPATION Morphine Sulfate (Morphine Inj) 2 mg IV.PUSH Q4H PRN PRN Reason: BREAKTHROUGH PAIN Last Admin: 06/27/18 03:42 Dose: 2 mg Ondansetron HCl (Zofran Inj) 4 mg IV.PUSH Q6H PRN PRN Reason: NAUSEA OR VOMITING Pantoprazole Sodium (Protonix) 40 mg PO DAILY [facility] Last Admin: 06/27/18 10:46 Dose: 40 mg Senna/Docusate Sodium (Taya-Colace) 1 tab PO BID [facility] Last Admin: 06/27/18 10:46 Dose: 1 tab Sennosides (Senokot) 17.2 mg PO Q12H PRN PRN Reason: Moderate Constipation Sodium Chloride (Ns Flush) 2 ml IV.FLUSH PRN PRN PRN Reason: FLUSH AFTER USING IV ACCESS <Reva Jc - Last Filed: 06/27/18 12:15> Active Medications: Active Medications Acetaminophen (Tylenol) 650 mg PO Q4H PRN PRN Reason: Temp > 100.4 Hydrocodone Bitart/Acetaminophen ([place] 10/325) 1 tab PO Q6H PRN PRN Reason: PAIN SCALE 6 TO 10 Last Admin: 06/27/18 11:40 Dose: 1 tab Al Hydroxide/Mg Hydroxide (Milk Of Magnesia Liq) 30 ml PO Q12H PRN PRN Reason: Mild Constipation Bisacodyl (Dulcolax Supp) 10 mg RECTAL DAILY PRN PRN Reason: SEVERE CONSITIPATION Hydromorphone HCl (Dilaudid Pf Inj) 1 mg IV.PUSH Q4H PRN PRN Reason: PAIN 6-10 Levofloxacin/Dextrose (Levaquin 750 Mg Premix Inj) 150 mls @ 100 mls/hr IV.SIG Q24H [facility] Last Admin: 06/27/18 18:25 Dose: 100 mls/hr Potassium Chloride 30 meq/ (Sodium Chloride) 1,015 mls @ 42 mls/hr IV.CONT .Q24H [facility] Last Admin: 06/27/18 14:41 Dose: 42 mls/hr Lactulose (Lactulose Liq) 30 ml PO DAILY PRN PRN Reason: SEVERE CONSITIPATION Morphine Sulfate (Morphine Inj) 2 mg IV.PUSH Q4H PRN PRN Reason: BREAKTHROUGH PAIN Last Admin: 06/27/18 19:19 Dose: 2 mg Ondansetron HCl (Zofran Inj) 4 mg IV.PUSH Q6H PRN PRN Reason: NAUSEA OR VOMITING Pantoprazole Sodium (Protonix) 40 mg PO DAILY [facility] Last Admin: 06/27/18 10:46 Dose: 40 mg Senna/Docusate Sodium (Taya-Colace) 1 tab PO BID [facility] Last Admin: 06/27/18 20:12 Dose: Not Given Sennosides (Senokot) 17.2 mg PO Q12H PRN PRN Reason: Moderate Constipation Sodium Chloride (Ns Flush) 2 ml IV.FLUSH PRN PRN PRN Reason: FLUSH AFTER USING IV ACCESS <Hemaidan,Ammar - Last Filed: 06/27/18 20:15> Allergies Allergy/AdvReac Type Severity Reaction Status Date / Time penicillin G Allergy Severe Hives Verified 06/24/18 07:35 Home Medications Medication Instructions Recorded Confirmed Type guaifenesin [Mucinex] 600 mg PO Q12H 06/24/18 06/24/18 History loratadine 10 mg PO DAILY PRN 06/24/18 06/24/18 History pantoprazole 40 mg PO DAILY 06/24/18 06/24/18 History polyethylene glycol 3350 [Miralax] 17 g PO DAILY 06/24/18 06/24/18 History Exam Vital signs: Vital Signs 06/26/18 16:00 06/26/18 19:35 06/27/18 00:00 Temperature 100.8 F H 100.2 F H 99.2 F Pulse Rate 85 96 H 90 Respiratory Rate 18 20 14 Blood Pressure 88/54 L 107/59 L 99/55 L Pulse Oximetry 94 L 94 L 94 L 06/27/18 04:00 06/27/18 07:59 06/27/18 11:22 Temperature 98.7 F 98.6 F 100.0 F H Pulse Rate 105 H 103 H 98 H Respiratory Rate 17 20 12 Blood Pressure 102/74 127/68 127/90 Pulse Oximetry 95 94 L 94 L Intake & Output 06/26/18 06/27/18 06/27/18 18:59 06:59 18:59 Intake Total 1125 / 1125 2650 / 2650 300 / 300 Output Total 1999 / 1999 Balance 1125 / 1125 650 / 650 300 / 300 Intake: IV 1125 / 1125 1150 / 1150 300 / 300 NS Inj 1,000 ML @ 100 mls/hr IV 1125 / 1125 .CONT .Q10H [facility] Rx#:[id number] D5W/1/2 NS Inj 1,000 ML @ 70 1000 / 1000 300 / 300 mls/hr IV.SIG .[id number] [facility] Rx#: [id number] Levaquin 750 mg Premix Inj 150 150 / 150 ML @ 100 mls/hr IV.SIG Q24H [facility] Rx#:[id number] Other 1500 / 1500 Output: Urine 900 / 900 Urine Amount (Catheter) 1100 / 1100 Indwelling Urethral Catheter 1100 / 1100 Other: Other Intake Source Saline Solution Date of Last Bowel Movement 06/24/18 - Constitutional moderate distress, obese, disheveled - Routine HEENT Exam Head: Present: normocephalic (Down syndrome) ENT: Present: mucous membranes dry - Routine Respiratory Exam Present: CTA bilaterally (No obvious rhonchi or wheezing) - Routine Cardiovascular Exam Present: S1, S2 - Routine Abdominal Exam Present: normoactive bowel sounds (Soft bowel sounds brown, mildly obese,) - Routine Skin Exam Present: intact <Hosea,Reva M - Last Filed: 06/27/18 12:15> Vital signs: Vital Signs 06/27/18 00:00 06/27/18 04:00 06/27/18 07:59 Temperature 99.2 F 98.7 F 98.6 F Pulse Rate 90 105 H 103 H Respiratory Rate 14 17 20 Blood Pressure 99/55 L 102/74 127/68 Pulse Oximetry 94 L 95 94 L 06/27/18 11:22 06/27/18 19:53 Temperature 100.0 F H 99.7 F H Pulse Rate 98 H 101 H Respiratory Rate 12 Blood Pressure 127/90 112/63 Pulse Oximetry 94 L 92 L Intake & Output 06/27/18 06/27/18 06/28/18 06:59 18:59 06:59 Intake Total 2650 / 2650 300 / 300 Output Total 2000 / 1999 Balance 650 / 650 300 / 300 Intake: IV 1150 / 1150 300 / 300 D5W/1/2 NS Inj 1,000 ML @ 70 1000 / 1000 300 / 300 mls/hr IV.SIG .[id number] [facility] Rx#: [id number] Levaquin 750 mg Premix Inj 150 150 / 150 ML @ 100 mls/hr IV.SIG Q24H [facility] Rx#:[id number] Other 1500 / 1500 Output: Urine 900 / 900 Urine Amount (Catheter) 1100 / 1100 Indwelling Urethral Catheter 1100 / 1100 Other: Other Intake Source Saline Solution Date of Last Bowel Movement 06/24/18 06/24/18 <Arabella Garcia - Last Filed: 06/27/18 20:15> Results - Labs CBC & Chem 7: 06/27/18 06:46 06/27/18 06:46 Labs: Laboratory Results - last 24 hr 06/27/18 06/27/18 06:46 06:46 WBC 8.4 RBC 3.81 L Hgb 12.9 L Hct 38.1 L MCV 100.2 H MCH 33.9 MCHC 33.8 RDW 15.1 Plt Count 253 MPV 7.5 Neut % (Auto) 76.7 H Lymph % (Auto) 11.6 [place] % (Auto) 11.0 H Eos % (Auto) 0.2 Baso % (Auto) 0.5 Neut # (Auto) 6.4 Lymph # (Auto) 1.0 [place] # (Auto) 0.9 Eos # (Auto) 0.0 Baso # (Auto) 0.0 WBC Differential . Differential Comment Auto diff final Sodium 135 L Potassium 3.4 L Chloride 96 L Carbon Dioxide 31.1 Anion Gap 8 BUN 9 Creatinine 0.88 Estimated GFR Greater than 89 Random Glucose 129 H Calcium 8.4 L Total Bilirubin 0.9 AST 58 H ALT 40 Alkaline Phosphatase 72 Total Protein 6.9 Albumin 2.4 L Lipase 382 <Reva Jc - Last Filed: 06/27/18 12:15> - Labs CBC & Chem 7: 06/27/18 06:46 06/27/18 06:46 Labs: Laboratory Results - last 24 hr 06/27/18 06/27/18 06:46 06:46 WBC 8.4 RBC 3.81 L Hgb 12.9 L Hct 38.1 L MCV 100.2 H MCH 33.9 MCHC 33.8 RDW 15.1 Plt Count 253 MPV 7.5 Neut % (Auto) 76.7 H Lymph % (Auto) 11.6 [place] % (Auto) 11.0 H Eos % (Auto) 0.2 Baso % (Auto) 0.5 Neut # (Auto) 6.4 Lymph # (Auto) 1.0 [place] # (Auto) 0.9 Eos # (Auto) 0.0 Baso # (Auto) 0.0 WBC Differential . Differential Comment Auto diff final Sodium 135 L Potassium 3.4 L Chloride 96 L Carbon Dioxide 31.1 Anion Gap 8 BUN 9 Creatinine 0.88 Estimated GFR Greater than 89 Random Glucose 129 H Calcium 8.4 L Total Bilirubin 0.9 AST 58 H ALT 40 Alkaline Phosphatase 72 Total Protein 6.9 Albumin 2.4 L Lipase 382 <Arabella Garcia - Last Filed: 06/27/18 20:15> Assessment and Plan - Plan 58-year-old male with history of dementia and Down syndrome as well as peptic ulcer disease came into the hospital with family for evaluation of uncontrolled abdominal pain off and on for 3 days. Sister is at his bedside and states that he was doubled over in pain unrelieved 10 out of 10 acute onset, no obvious nausea vomiting or dyspepsia. Patient moans at times but does not speak. Current labs reviewed which showed initial lipase at 762 now 382, normal bilirubin AST 58 ALT 40, alkaline phosphatase 72, albumin 2.4, hemoglobin 12.9 hematocrit 38 and white count 8.4. Patient was noted to have fever on [address] done on 06/24/2018 was unremarkable. No family history of colon cancer and no previous EGD or colonoscopy initially diagnosed with idiopathic pancreatitis and GI was consulted. There is no obvious rectal bleeding no hematemesis but patient does appear to have generalized abdominal pain and discomfort. Pancreatitis, nonspecific idiopathic Terms of generalized abdominal pain Mild elevated AST 58 probably related to some fatty liver disease Bili lipase level now trending down currently 382. Plan Diet clear liquids for now Monitor labs with special attention to lipase level Bowel regimen as needed IV fluids and hydration Pain management per attending Further recommendations to follow, will monitor lipase level and patient's response to abdominal pain Supportive care Patient was seen per myself and Dr. Garcia, note was written on his behalf <Reva Jc - Last Filed: 06/27/18 12:15> - Plan Agree with above note and plan, continue current management, hydration and pain management, will check IgG4 if it was not done already <Arabella aGrcia - Last Filed: 06/27/18 20:15>
[2018-06-27] MEDS: Potassium Chloride Inj 30 MEQ in Sod Chloride 0.9% Inj 1,000 ML IV.CONT SCH (14:41)
[2018-06-28] MEDS: Morphine Sulfate Inj 2 MG/ML Vial IV.PUSH PRN (03:18)
[2018-06-28 09:03] LABS: Baso % (Auto) 0.3 % (0.0-2.0); Eos % (Auto) 0.1 % (0.0-4.0); Hematocrit 36.2 % (39.0-51.0); Hemoglobin 12.4 gm/dL (13.0-17.0); Lymph # (Auto) 0.3 th/mm3 (1.0-4.8); Lymph % (Auto) 2.4 % (9.0-44.0); Mean Corpuscular HGB Conc 34.3 % (32.0-36.0); Mean Corpuscular Hemoglobin 34.2 pg (27.0-34.0); Mean Corpuscular Volume 99.7 fL (80.0-100.0); Mean Platelet Volume 8.2 fL (7.0-11.0); Mono % (Auto) 7.9 % (0.0-8.0); Neut # (Auto) 10.9 th/mm3 (1.8-7.7); Neut % (Auto) 89.3 % (16.0-70.0); Platelet Count 269 th/mm3 (150-450); Red Blood Count 3.63 mil/mm3 (4.50-5.90); Red Cell Distribution Width 15.4 % (11.6-17.2); White Blood Count 12.2 th/mm3 (4.0-11.0)
[2018-06-28 09:38] LABS: Anion Gap 9 meq/L (5-15); Aspartate Aminotransferase 40 U/L (15-37); Blood Urea Nitrogen 12 mg/dL (7-18); Calcium 8.4 mg/dL (8.5-10.1); Chloride 96 meq/L (98-107); Glomerular Filtration Rate 82 mL/min (>89); Glucose,Random 127 mg/dL (74-106); Lipase 281 U/L (73-393); Potassium 4.3 meq/L (3.5-5.1); Sodium 133 meq/L (136-145)
[2018-06-28 10:10] LABS: Alanine Aminotransferase 37 U/L (12-78); Alkaline Phosphatase 94 U/L (45-117); Total Protein 6.7 g/dL (6.4-8.2)
[2018-06-28] MEDS: Senna/Docusate Sodium 8.6/50 MG Tablet PO SCH ×2 (10:20→20:03)
[2018-06-28] MEDS: Potassium Chloride Inj 30 MEQ in Sod Chloride 0.9% Inj 1,000 ML IV.CONT SCH (15:12)
--- NOTE | 2018-06-28 15:58 | P.PNFP ---
Subjective Interval history: looks better today. family at bedside. discussed goals of care, expectations, poor prognosis, may need hospice. advanced care planning discussed with family and nursing for 30 min. sales operations consultant reports reviewed. Results - Labs Result diagrams: 06/28/18 08:40 06/28/18 08:40 Abnormal lab results 06/28/18 06/28/18 Range/Units 08:40 08:40 WBC 12.2 H (4.0-11.0) th/mm3 RBC 3.63 L (4.50-5.90) mil/mm3 Hgb 12.4 L (13.0-17.0) gm/dL Hct 36.2 L (39.0-51.0) % MCH 34.2 H (27.0-34.0) pg Neut % (Auto) 89.3 H (16.0-70.0) % Lymph % (Auto) 2.4 L (9.0-44.0) % Neut # (Auto) 10.9 H (1.8-7.7) th/mm3 Lymph # (Auto) 0.3 L (1.0-4.8) th/mm3 [place] # (Auto) 1.0 H (0.0-0.9) th/mm3 Sodium 133 L (136-145) meq/L Chloride 96 L (98-107) meq/L Estimated GFR 82 L (>89) mL/min Random Glucose 127 H (74-106) mg/dL Calcium 8.4 L (8.5-10.1) mg/dL AST 40 H (15-37) U/L Albumin 2.0 L (3.4-5.0) g/dL Short CBC 06/28/18 Range/Units 08:40 WBC 12.2 H (4.0-11.0) th/mm3 Hgb 12.4 L (13.0-17.0) gm/dL Hct 36.2 L (39.0-51.0) % Plt Count 269 (150-450) th/mm3 BMP 06/28/18 08:40 Sodium 133 L Potassium 4.3 D Chloride 96 L Carbon Dioxide 28.0 BUN 12 Creatinine 0.95 Calcium 8.4 L Liver Function 06/28/18 Range/Units 08:40 Total Bilirubin 1.0 (0.2-1.0) mg/dL AST 40 H (15-37) U/L ALT 37 (12-78) U/L Alkaline Phosphatase 94 (45-117) U/L Albumin 2.0 L (3.4-5.0) g/dL Physical Exam Vital signs: Vital Signs 06/27/18 19:53 06/27/18 20:00 06/28/18 00:00 Temperature 99.7 F H 99.7 F H Pulse Rate 101 H 110 H Respiratory Rate 20 20 Blood Pressure 112/63 136/76 Pulse Oximetry 92 L 92 L 06/28/18 03:31 06/28/18 12:00 Temperature 97.8 F 100.8 F H Pulse Rate 109 H 96 H Respiratory Rate 20 18 Blood Pressure 128/60 100/66 Pulse Oximetry 94 L 94 L Intake & Output 06/27/18 06/28/18 06/28/18 18:59 06:59 18:59 Intake Total 300 / 300 150 / 150 Output Total 600 / 600 Balance 300 / 300 -450 / -450 Intake: IV 300 / 300 150 / 150 D5W/1/2 NS Inj 1,000 ML @ 70 300 / 300 mls/hr IV.SIG .[id number] [facility] Rx#: [id number] Levaquin 750 mg Premix Inj 150 150 / 150 ML @ 100 mls/hr IV.SIG Q24H [facility] Rx#:[id number] Output: Urine 600 / 600 Other: Date of Last Bowel Movement 06/24/18 06/24/18 06/24/18 - Constitutional no acute distress, chronically ill appearing, somnolent - Routine HEENT Exam Head: Present: normocephalic Eye: Present: EOMI - Routine Neck Exam Present: supple - Routine Respiratory Exam Present: decreased breath sounds, rhonchi, distant breath sounds - Routine Cardiovascular Exam Present: RRR, S1, S2 - Routine Abdominal Exam Present: soft, tenderness - Routine Extremities Exam Present: pulses intact - Routine Skin Exam Present: intact - Routine Neurological Exam Present: altered mental status - Detailed Neurological Exam: Coma Scale Eye Opening: To pressure - Routine Psychiatric Exam Present: unable to assess - Urinary Catheter Management Indwelling Urethral Catheter Cath placed during this visit: yes Urethral indwelling: Yes Reason for continuing: Acute urinary retention Insertion date: 06/24/18 Insertion time: 06:45 Assessment and Plan - Assessment (1) Acute pancreatitis Code(s): K85.90 - Acute pancreatitis without necrosis or infection, unspecified Status: Acute (2) UTI (urinary tract infection) Code(s): N39.0 - Urinary tract infection, site not specified Status: Acute - Assessment and Plan PANCREATITIS: IVF, CONSULT GI, advancing clears, UTI: IV ABX fevers: repeat cath ua, changed philip PUD SZ HYPONATREMIA: IVF, MONITOR AND RECHECK HYPOKALEMIA: ADD TO IVF, RECHECK ANEMIA: FOLLOWUP LABS DOWNS Dispo: family questioning palliative or hospice options. Advanced care planning discussed with family for 30 minutes. (1) Acute pancreatitis Qualifiers: Pancreatitis type: idiopathic
--- NOTE | 2018-06-28 16:33 | P.PNGI ---
Subjective Interval history: Patient resting soundly in bed with eyes closed. Family members at bedside Bedside nurse reports patient tolerated clear liquids today without any noted discomfort, nausea or vomiting. <Lulu Mckee - Last Filed: 06/28/18 16:28> Physical Exam Vital signs: Vital Signs 06/27/18 19:53 06/27/18 20:00 06/28/18 00:00 Temperature 99.7 F H 99.7 F H Pulse Rate 101 H 110 H Respiratory Rate 20 20 Blood Pressure 112/63 136/76 Pulse Oximetry 92 L 92 L 06/28/18 03:31 06/28/18 12:00 Temperature 97.8 F 100.8 F H Pulse Rate 109 H 96 H Respiratory Rate 20 18 Blood Pressure 128/60 100/66 Pulse Oximetry 94 L 94 L Intake & Output 06/27/18 06/28/18 06/28/18 18:59 06:59 18:59 Intake Total 300 / 300 150 / 150 400 / 400 Output Total 600 / 600 Balance 300 / 300 -450 / -450 400 / 400 Intake: IV 300 / 300 150 / 150 400 / 400 KCl Inj 30 MEQ In NS Inj 1,000 400 / 400 ML @ 42 mls/hr IV.CONT .Q24H [facility] Rx#:[id number] D5W/1/2 NS Inj 1,000 ML @ 70 300 / 300 mls/hr IV.SIG .[id number] [facility] Rx#: [id number] Levaquin 750 mg Premix Inj 150 150 / 150 ML @ 100 mls/hr IV.SIG Q24H [facility] Rx#:[id number] Output: Urine 600 / 600 Other: Date of Last Bowel Movement 06/24/18 06/24/18 06/24/18 - Constitutional no acute distress - Routine HEENT Exam Head: Present: normocephalic - Routine Respiratory Exam Absent: accessory muscle use - Routine Abdominal Exam Present: soft, normoactive bowel sounds. Absent: distended, guarding, firm - Routine Skin Exam Present: dry, warm - Urinary Catheter Management Indwelling Urethral Catheter Cath placed during this visit: yes Urethral indwelling: Yes Reason for continuing: Acute urinary retention Insertion date: 06/24/18 Insertion time: 06:45 <Lulu Mckee - Last Filed: 06/28/18 16:28> Vital signs: Vital Signs 06/27/18 20:00 06/28/18 00:00 06/28/18 03:31 Temperature 99.7 F H 97.8 F Pulse Rate 110 H 109 H Respiratory Rate 20 20 20 Blood Pressure 136/76 128/60 Pulse Oximetry 92 L 94 L 06/28/18 12:00 06/28/18 16:50 06/28/18 19:27 Temperature 100.8 F H 98.4 F Pulse Rate 96 H 97 H Respiratory Rate 18 16 17 Blood Pressure 100/66 134/70 Pulse Oximetry 94 L 92 L Intake & Output 06/28/18 06/28/18 06/29/18 06:59 18:59 06:59 Intake Total 150 / 150 400 / 400 150 / 150 Output Total 600 / 600 Balance -450 / -450 400 / 400 150 / 150 Intake: IV 150 / 150 400 / 400 150 / 150 KCl Inj 30 MEQ In NS Inj 1,000 400 / 400 ML @ 42 mls/hr IV.CONT .Q24H [facility] Rx#:[id number] Levaquin 750 mg Premix Inj 150 150 / 150 150 / 150 ML @ 100 mls/hr IV.SIG Q24H [facility] Rx#:[id number] Output: Urine 600 / 600 Other: Date of Last Bowel Movement 06/24/18 06/24/18 - Urinary Catheter Management Indwelling Urethral Catheter Cath placed during this visit: no <Arabella Garcia - Last Filed: 06/28/18 19:59> Results - Labs CBC & Chem 7: 06/28/18 08:40 06/28/18 08:40 Laboratory Results - last 24 hr 06/28/18 06/28/18 08:40 08:40 WBC 12.2 H RBC 3.63 L Hgb 12.4 L Hct 36.2 L MCV 99.7 MCH 34.2 H MCHC 34.3 RDW 15.4 Plt Count 269 MPV 8.2 Neut % (Auto) 89.3 H Lymph % (Auto) 2.4 L [place] % (Auto) 7.9 Eos % (Auto) 0.1 Baso % (Auto) 0.3 Neut # (Auto) 10.9 H Lymph # (Auto) 0.3 L [place] # (Auto) 1.0 H Eos # (Auto) 0.0 Baso # (Auto) 0.0 WBC Differential . Differential Comment Auto diff final Sodium 133 L Potassium 4.3 D Chloride 96 L Carbon Dioxide 28.0 Anion Gap 9 BUN 12 Creatinine 0.95 Estimated GFR 82 L Random Glucose 127 H Calcium 8.4 L Total Bilirubin 1.0 AST 40 H ALT 37 Alkaline Phosphatase 94 Total Protein 6.7 Albumin 2.0 L Lipase 281 <Lulu Mckee - Last Filed: 06/28/18 16:28> - Labs CBC & Chem 7: 06/28/18 08:40 06/28/18 08:40 Laboratory Results - last 24 hr 06/28/18 06/28/18 08:40 08:40 WBC 12.2 H RBC 3.63 L Hgb 12.4 L Hct 36.2 L MCV 99.7 MCH 34.2 H MCHC 34.3 RDW 15.4 Plt Count 269 MPV 8.2 Neut % (Auto) 89.3 H Lymph % (Auto) 2.4 L [place] % (Auto) 7.9 Eos % (Auto) 0.1 Baso % (Auto) 0.3 Neut # (Auto) 10.9 H Lymph # (Auto) 0.3 L [place] # (Auto) 1.0 H Eos # (Auto) 0.0 Baso # (Auto) 0.0 WBC Differential . Differential Comment Auto diff final Sodium 133 L Potassium 4.3 D Chloride 96 L Carbon Dioxide 28.0 Anion Gap 9 BUN 12 Creatinine 0.95 Estimated GFR 82 L Random Glucose 127 H Calcium 8.4 L Total Bilirubin 1.0 AST 40 H ALT 37 Alkaline Phosphatase 94 Total Protein 6.7 Albumin 2.0 L Lipase 281 <Arabella Garcia - Last Filed: 06/28/18 19:59> Assessment and Plan - Plan 06/28/2018 Pancreatitis Patient resting soundly. Bedside nurse reports no vomiting or noted abdominal discomfort. States patient tolerated clear liquid today well. WBC 12.2 hemoglobin 12.4 hematocrit 36.2 total bilirubin 1.0 AST 40 ALT 37 alk phos 94 lipase trending down at 281 Plan -Continue clear liquid diet -Monitor labs-lipase--> IgG4 pending -Continue IV hydration -Analgesia and antiemetics as per attending -Supportive care -Further recommendations to follow This patient has been seen by myself and Dr. Garcia and this note is written on his behalf - Attending Attestation Dr. Garcia <Lulu Mckee - Last Filed: 06/28/18 16:28> - Plan Agree with above note and plan, continue current care, lipase trending down, if doing better we will start low-fat diet tomorrow <Arabella Garcia - Last Filed: 06/28/18 19:59>
--- NOTE | 2018-06-28 17:57 | P.CONPAL ---
Consult Service: Palliative Care Requesting Physician: Julian Guerrero Reason for Consult: a. To assist with evaluation and management of symptoms including: Pain. b. To assist medical decision maker(s) with: better understanding of current medical conditions; weighing benefits/burdens of medical treatment options; making medical treatment decisions. Primary Care Provider: Julian Guerrero MD History of Present Illness History of Present Illness: Mr. Yang is a 58-year-old male with a medical history significant for Down syndrome, dementia, history of GI bleed who presented to ED via EMS on 07/01 for evaluation of abdominal pain. Laboratory workup indicating WBC 14.1, sodium 135, BUN/creatinine 13/1.45 and lipase of 762. UA positive for nitrates , negative for leukocyte. Abdomen/pelvis CT and chest x-ray negative for acute process. GI was consulted on 06/27 for evaluation of intractable abdominal pain and acute pancreatitis. Lipase decreasing from 762 on presentation to 382. Patient was continue on clear diet, pancreatitis idiopathic. Palliative care has been consulted for further clarifications of goals of care in the setting of patient's progressive decline given Down syndrome and dementia. Patient seen and ED room F70. Mother Glory, Sister Arabella and brother at bedside. Patient sleeping during visit, briefly opening eyes to verbal stimuli but not following commands or attempting to communicate. Family reports that patient has not been moving or following that many commands for the past few days. 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 However, about a year ago patient has been having some progressive decline. Refusing to get out of the house and stopping activities of daily living. Mother feels that this was exacerbated by patient's father's and Hurricaine. Mother further reports that beginning January of this year, patient has been have it even more physical on cognitive decline. Ambulating with 2 person assistance while shuffling around the house. Patient with less interaction and requiring more assistance with ADLs. He was on a soft diet, no swallowing difficulty reported or weight loss. Family reports that patient's quality of life is third priority more than prolongation of survival. They acknowledge life expectancy of a patient with Down syndrome now with severe dementia. Family inquiring regarding hospice services. Reviewed hospice philosophy and benefits. Reviewed that given patient's recent decline and current symptoms, he appears end-of-life with a life expectancy of days to weeks. Family electing DNR/DNI. Wishing for [facility] hosp[facility] information visit , likely transition home with hospice services. Family receptive to palliative care follow-up, scheduled for 06/29 at 11 AM. Spiritual services offered and accepted, mother requesting dispatch clerk. Case reviewed with bedside SHIRLENE Bailey. 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 However, about a year ago patient has been having some progressive decline. Refusing to get out of the house and stopping activities of daily living. Mother feels that this was exacerbated by patient's father's and Hurricaine. Mother further reports that beginning January of this year, patient has been have it even more physical on cognitive decline. Ambulating with 2 person assistance while shuffling around the house. Patient with less interaction and requiring more assistance with ADLs. Review of Systems unobtainable due to mental condition, unobtainable due to mental status PMFSH - History History Provided By: Family Member, Bag Press Operator / EMT - Medical History Medical History: Medical History (Last Reviewed 06/24/18 @ 13:55 by Abdullahi Springer MD) Dementia Developmental disability Down's syndrome Peptic ulcer Seasonal allergies - Family History Family History: Family History (Last Updated 06/24/18 @ 13:56 by Abdullahi Springer MD) Other Family history non-contributory - Tobacco History Second Hand Smoke Exposure: No Smoking Status: Never smoker - Alcohol History How Often Do You Have a Drink Containing Alcohol: Never - Substance Use History Substance History: Unable to Obtain (Nursing reports family mentioned cannabis oil ) - Travel History Recent Travel in the [place] Within the Last 8 Weeks: No Recent Travel Out of the Country Within the Last 8 Weeks: No - Immunization History Tetanus Immunization: >5 Years Medications and Allergies Active Medications: Active Medications Acetaminophen (Tylenol) 650 mg PO Q4H PRN PRN Reason: Temp > 100.4 Hydrocodone Bitart/Acetaminophen (Yoder 10/325) 1 tab PO Q6H PRN PRN Reason: PAIN SCALE 6 TO 10 Last Admin: 06/28/18 16:07 Dose: 1 tab Al Hydroxide/Mg Hydroxide (Milk Of Kiah Liq) 30 ml PO Q12H PRN PRN Reason: Mild Constipation Bisacodyl (Dulcolax Supp) 10 mg RECTAL DAILY PRN PRN Reason: SEVERE CONSITIPATION Hydromorphone HCl (Dilaudid Pf Inj) 1 mg IV.PUSH Q4H PRN PRN Reason: PAIN 6-10 Levofloxacin/Dextrose (Levaquin 750 Mg Premix Inj) 150 mls @ 100 mls/hr IV.SIG Q24H [facility] Last Infusion: 06/27/18 22:34 Dose: Infused Potassium Chloride 30 meq/ (Sodium Chloride) 1,015 mls @ 42 mls/hr IV.CONT .Q24H [facility] Last Infusion: 06/28/18 16:25 Dose: Infused Lactulose (Lactulose Liq) 30 ml PO DAILY PRN PRN Reason: SEVERE CONSITIPATION Morphine Sulfate (Morphine Inj) 2 mg IV.PUSH Q4H PRN PRN Reason: BREAKTHROUGH PAIN Last Admin: 06/28/18 03:18 Dose: 2 mg Ondansetron HCl (Zofran Inj) 4 mg IV.PUSH Q6H PRN PRN Reason: NAUSEA OR VOMITING Pantoprazole Sodium (Protonix) 40 mg PO DAILY [facility] Last Admin: 06/28/18 10:21 Dose: 40 mg Senna/Docusate Sodium (Taya-Colace) 1 tab PO BID [facility] Last Admin: 06/28/18 10:20 Dose: 1 tab Sennosides (Senokot) 17.2 mg PO Q12H PRN PRN Reason: Moderate Constipation Sodium Chloride (Ns Flush) 2 ml IV.FLUSH PRN PRN PRN Reason: FLUSH AFTER USING IV ACCESS Allergies Allergy/AdvReac Type Severity Reaction Status Date / Time penicillin G Allergy Severe Hives Verified 06/24/18 07:35 Home Medications Medication Instructions Recorded Confirmed Type guaifenesin [Mucinex] 600 mg PO Q12H 06/24/18 06/24/18 History loratadine 10 mg PO DAILY PRN 06/24/18 06/24/18 History pantoprazole 40 mg PO DAILY 06/24/18 06/24/18 History polyethylene glycol 3350 [Miralax] 17 g PO DAILY 06/24/18 06/24/18 History Advance Directives Living Will: No Healthcare Surrogate: No Power of Package Sorter: No Physical Exam Vital Signs: Vital Signs - 24 hr 11/14/18 19:53 06/27/18 20:00 06/28/18 00:00 Temperature 99.7 F H 99.7 F H Pulse Rate 101 H 110 H Respiratory Rate 20 20 Blood Pressure 112/63 136/76 Pulse Oximetry 92 L 92 L 06/28/18 03:31 06/28/18 12:00 06/28/18 16:50 Temperature 97.8 F 100.8 F H Pulse Rate 109 H 96 H Respiratory Rate 20 18 16 Blood Pressure 128/60 100/66 Pulse Oximetry 94 L 94 L I&O: Intake & Output 06/26/18 06/27/18 06/28/18 06/29/18 06:59 06:59 06:59 06:59 Intake Total 3500 / 3500 3775 / 3775 450 / 450 400 / 400 Output Total 2300 / 2300 1999 / 2000 600 / 600 Balance 1200 / 1200 1775 / 1775 -150 / -150 400 / 400 Physical Exam: CONSTITUTIONAL/GENERAL: This is an adequately nourished patient, in no apparent distress. TUBES/LINES/DRAINS: Nasal cannula, PIV. SKIN: No jaundice, rashes, or lesions.No wounds seen anteriorly. Skin temperature appropriate. Not diaphoretic. HEAD: Atraumatic. Normocephalic. EYES: Pupils equal and round and reactive. No scleral icterus. No injection or drainage. Fundi not examined. ENT: Nose without bleeding or purulent drainage. Moist oral mucosa. NECK: Trachea midline. Supple, nontender. CARDIOVASCULAR: Regular rate and rhythm. Peripheral pulses symmetric. RESPIRATORY/CHEST: Symmetric, unlabored respirations. Coarse breath sounds bilaterally. On O2 via nasal GASTROINTESTINAL: Abdomen soft, non-tender, nondistended. No guarding. Bowel sounds present. GENITOURINARY: Without palpable bladder distension. MUSCULOSKELETAL: Extremities without clubbing, cyanosis, or edema. No mottling or clubbing. NEUROLOGICAL: Briefly opening eyes to verbal stimuli. Not following commands. Obtunded. PSYCHIATRIC: Unable to evaluate given the above. Diagnostic Tests Laboratory: Laboratory Results - last 72 hr 06/26/18 06/26/18 06/27/18 05:35 05:35 06:46 WBC 10.4 8.4 RBC 3.65 L 3.81 L Hgb 12.9 L D 12.9 L Hct 36.0 L 38.1 L MCV 98.8 100.2 H MCH 35.3 H 33.9 MCHC 35.8 33.8 RDW 15.3 15.1 Plt Count 265 253 MPV 7.5 7.5 Neut % (Auto) 80.3 H 76.7 H Lymph % (Auto) 8.3 L 11.6 Millard % (Auto) 11.0 H 11.0 H Eos % (Auto) 0.1 0.2 Baso % (Auto) 0.3 0.5 Neut # (Auto) 8.3 H 6.4 Lymph # (Auto) 0.9 L 1.0 Millard # (Auto) 1.1 H 0.9 Eos # (Auto) 0.0 0.0 Baso # (Auto) 0.0 0.0 WBC Differential . . Differential Comment Auto diff final Auto diff final Sodium 138 Potassium 3.5 Chloride 98 Carbon Dioxide 29.7 Anion Gap 10 BUN 5 L Creatinine 0.85 Estimated GFR Greater than 89 Random Glucose 106 Calcium 8.2 L Total Bilirubin 0.7 AST 115 H ALT 51 Alkaline Phosphatase 69 Total Protein 6.8 D Albumin 2.6 L Lipase 491 H 06/27/18 06/28/18 06/28/18 06:46 08:40 08:40 WBC 12.2 H RBC 3.63 L Hgb 12.4 L Hct 36.2 L MCV 99.7 MCH 34.2 H MCHC 34.3 RDW 15.4 Plt Count 269 MPV 8.2 Neut % (Auto) 89.3 H Lymph % (Auto) 2.4 L Millard % (Auto) 7.9 Eos % (Auto) 0.1 Baso % (Auto) 0.3 Neut # (Auto) 10.9 H Lymph # (Auto) 0.3 L Millard # (Auto) 1.0 H Eos # (Auto) 0.0 Baso # (Auto) 0.0 WBC Differential . Differential Comment Auto diff final Sodium 135 L 133 L Potassium 3.4 L 4.3 D Chloride 96 L 96 L Carbon Dioxide 31.1 28.0 Anion Gap 8 9 BUN 9 12 Creatinine 0.88 0.95 Estimated GFR Greater than 89 82 L Random Glucose 129 H 127 H Calcium 8.4 L 8.4 L Total Bilirubin 0.9 1.0 AST 58 H 40 H ALT 40 37 Alkaline Phosphatase 72 94 Total Protein 6.9 6.7 Albumin 2.4 L 2.0 L Lipase 382 281 Result Diagrams: 06/28/18 08:40 06/28/18 08:40 Microbiology: Microbiology 06/24/18 06:40 Urine Culture - Final Clean Catch Urine No growth in 48 hours Patient/Family Conference Present at Family Conference: Patient's mother Kristel, Sister Arabella and brother Adalid. Family Conference Time: 43 Family Conference Location: Bedside Issues Discussed: * Palliative care role, purpose, approach * Additional medical, psychosocial, and spiritual history * Patients general health, functional status, and cognitive changes in the months leading up to the current hospitalization * Patient/family understanding of the current medical problems * Patient/family understanding of prognosis * Patients goals of care as best understood from advance directives and/or conversations and/or values * Current medical treatment options and benefits/burdens of those options * Likely scenarios comparing ongoing aggressive care with a transition to comfort measures only * Questions answered to the best of my ability * Palliative care contact information provided * Hospice philosophy and benefits * Risk, benefits and limitations of CPR, intubation and mechanical ventilation in the setting of Down syndrome with severe dementia Assessment and Plan - Disease Oriented Problem List (1) Down syndrome (2) Severe dementia (3) Acute pancreatitis (4) UTI (urinary tract infection) - Symptom Scale (1) Pain 0-10 Scale: Unable to quantify Pertinent Non-Medical Issues: Psychosocial: Patient residing with mother living. Single, never . No biological children. He has 2 siblings. Working at [employer] until 2017. Spiritual: Church. Legal: No advance directives completed. Ethical issues impacting care: No ethical issues identified. Important Contacts: Mother Kristel , Sister Arabella Murillo Brother Adalid Prognosis: Mr. Yang is a 58-year-old male with a medical history significant for Down syndrome, dementia, history of GI bleed who presented to ED via EMS on 07/01 for evaluation of abdominal pain. Patient was found with UTI and acute pancreatitis of unknown etiology. Family reports progressive physical and cognitive decline, Down syndrome with severe dementia. Patient appears end-of- life at this time. Code Status: No Code DNR Plan: * CODE STATUS: DNR/DNI. * HEALTHCARE DECISION-MAKING: Patient unable to participating medical decision making in the setting of Down syndrome with severe dementia. Mother Tania acting as proxy healthcare surrogate decision maker. * GOALS OF CARE: Continue supportive management short of no code. Family considering comfort-directed care with hospice in the setting of progressive physical and cognitive decline secondary to Down syndrome and severe dementia. Hospice referral has been made. * SYMPTOMS: = Abdominal pain secondary to acute pancreatitis. GI following. Yoder 10/325 every 6 hours available as needed, has received 2 doses in the past 24 hours. Hydromorphone 1 mg IV of every 4 hours available as needed. None given in the past 24 hours. Morphine 2 mg IV every 4 hours available as needed. Has received 3 doses in the past 24 hours with good effect. Palliative care recommends discontinuation of morphine as morphine induces spasms in the sphincter of Oddi and should not be used in the setting of acute pancreatitis. Patient to continue with IV hydromorphone and oral Yoder as previously ordered. * Spiritual services offered and accepted. Referral sent. Family requesting dispatch clerk. * Family electing [facility]. Referral has been made. * Palliative care to follow-up for further clarifications of goals of care, family support patient's clinical course evolves. Follow-up family meeting at 11 AM. Time Spent Total Floor Time (mins): 56 (Total time to include review and summarization of available medical records to include prior hospitalizations, physical exam, goals of care conversation with patient's family, case discussion with bedside RN and hospice.) >50% Time in Counseling or Coordination of Care: Yes (Total visit time = 56 minutes; > 50% spent counseling/coordinating care) Appreciation Thank you for the opportunity to participate in the care of Silvio Yang. Attestation Attestation: To help prompt me to consider important information that might be impacting today's encounter and assessment, information from prior notes written by myself or my colleagues may have been "brought forward" into today's note. My signature on this note, however, is an attestation that I personally performed the exam, history, and/or decision-making noted today, and, unless otherwise indicated, the interactions with patient, family, and staff as well as the review of records all occurred today. I also attest that the listed assessment and stated plan reflect my best clinical judgment today based on the combination of historical information, prior notes, and today's exam/ interactions. When time spent is documented, it refers only to time spent today by the signer, or if indicated, combined time spent today by collaborating physician/nurse practitioner.
[2018-06-29] MEDS: Morphine Sulfate Inj 2 MG/ML Vial IV.PUSH PRN (09:37)
[2018-06-29] MEDS: Senna/Docusate Sodium 8.6/50 MG Tablet PO SCH (09:38)
[2018-06-29 09:45] LABS: Baso # (Auto) 0.1 th/mm3 (0.0-0.2); Baso % (Auto) 0.8 % (0.0-2.0); Eos # (Auto) 0.1 th/mm3 (0.0-0.4); Eos % (Auto) 0.8 % (0.0-4.0); Hematocrit 34.4 % (39.0-51.0); Hemoglobin 11.7 gm/dL (13.0-17.0); Lymph # (Auto) 0.9 th/mm3 (1.0-4.8); Lymph % (Auto) 10.5 % (9.0-44.0); Mean Corpuscular HGB Conc 33.9 % (32.0-36.0); Mean Corpuscular Hemoglobin 34.3 pg (27.0-34.0); Mean Corpuscular Volume 101.1 fL (80.0-100.0); Mean Platelet Volume 7.5 fL (7.0-11.0); Mono # (Auto) 1.1 th/mm3 (0.0-0.9); Mono % (Auto) 13.3 % (0.0-8.0); Neut # (Auto) 6.2 th/mm3 (1.8-7.7); Neut % (Auto) 74.6 % (16.0-70.0); Platelet Count 275 th/mm3 (150-450); Red Blood Count 3.41 mil/mm3 (4.50-5.90); Red Cell Distribution Width 15.3 % (11.6-17.2); White Blood Count 8.4 th/mm3 (4.0-11.0)
[2018-06-29 10:12] LABS: Anion Gap 9 meq/L (5-15); Aspartate Aminotransferase 47 U/L (15-37); Blood Urea Nitrogen 14 mg/dL (7-18); Calcium 8.7 mg/dL (8.5-10.1); Chloride 94 meq/L (98-107); Glomerular Filtration Rate 88 mL/min (>89); Glucose,Random 109 mg/dL (74-106); Lipase 251 U/L (73-393); Sodium 133 meq/L (136-145)
[2018-06-29 10:14] LABS: Alanine Aminotransferase 62 U/L (12-78)
[2018-06-29 10:16] LABS: Alkaline Phosphatase 165 U/L (45-117); Total Protein 6.8 g/dL (6.4-8.2)
--- NOTE | 2018-06-29 10:50 | P.PNFP ---
Subjective Interval history: seen w family, pt more alert. discussed with nursing. Results - Labs Result diagrams: 06/29/18 09:25 06/29/18 09:25 Abnormal lab results 06/29/18 06/29/18 Range/Units 09:25 09:25 RBC 3.41 L (4.50-5.90) mil/mm3 Hgb 11.7 L (13.0-17.0) gm/dL Hct 34.4 L (39.0-51.0) % MCV 101.1 H (80.0-100.0) fL MCH 34.3 H (27.0-34.0) pg Neut % (Auto) 74.6 H (16.0-70.0) % Weber % (Auto) 13.3 H (0.0-8.0) % Lymph # (Auto) 0.9 L (1.0-4.8) th/mm3 Weber # (Auto) 1.1 H (0.0-0.9) th/mm3 Sodium 133 L (136-145) meq/L Chloride 94 L (98-107) meq/L Estimated GFR 88 L (>89) mL/min Random Glucose 109 H (74-106) mg/dL AST 47 H (15-37) U/L Alkaline Phosphatase 165 H (45-117) U/L Albumin 2.0 L (3.4-5.0) g/dL Short CBC 06/29/18 Range/Units 09:25 WBC 8.4 (4.0-11.0) th/mm3 Hgb 11.7 L (13.0-17.0) gm/dL Hct 34.4 L (39.0-51.0) % Plt Count 275 (150-450) th/mm3 [facility] 06/29/18 09:25 Sodium 133 L Potassium 4.0 Chloride 94 L Carbon Dioxide 30.0 BUN 14 Creatinine 0.89 Calcium 8.7 Liver Function 06/29/18 Range/Units 09:25 Total Bilirubin 0.8 (0.2-1.0) mg/dL AST 47 H (15-37) U/L ALT 62 (12-78) U/L Alkaline Phosphatase 165 H (45-117) U/L Albumin 2.0 L (3.4-5.0) g/dL Physical Exam Vital signs: Vital Signs 06/28/18 12:00 06/28/18 16:50 06/28/18 19:27 Temperature 100.8 F H 98.4 F Pulse Rate 96 H 97 H Respiratory Rate 18 16 17 Blood Pressure 100/66 134/70 Pulse Oximetry 94 L 92 L 06/28/18 23:42 06/29/18 04:28 06/29/18 04:32 Temperature 98.0 F 97.6 F 97.9 F Pulse Rate 95 H 70 99 H Respiratory Rate 17 16 20 Blood Pressure 128/68 147/65 H 125/72 Pulse Oximetry 95 98 93 L 06/29/18 05:10 06/29/18 08:00 Temperature 97.5 F L Pulse Rate 95 H Respiratory Rate 20 18 Blood Pressure 115/72 Pulse Oximetry 95 Intake & Output 06/28/18 06/29/18 06/29/18 18:59 06:59 18:59 Intake Total 400 / 400 150 / 150 Balance 400 / 400 150 / 150 Intake: IV 400 / 400 150 / 150 KCl Inj 30 MEQ In NS Inj 1,000 400 / 400 ML @ 42 mls/hr IV.CONT .Q24H [facility] Rx#:[id number] Levaquin 750 mg Premix Inj 150 150 / 150 ML @ 100 mls/hr IV.SIG Q24H [facility] Rx#:[id number] Other: Date of Last Bowel Movement 06/24/18 06/24/18 - Constitutional no acute distress, chronically ill appearing - Routine Neck Exam Present: supple - Routine Respiratory Exam Present: CTA bilaterally - Routine Cardiovascular Exam Present: RRR, S1, S2 - Routine Abdominal Exam Present: soft, normoactive bowel sounds - Routine Extremities Exam Present: full ROM - Routine Skin Exam Present: intact - Routine Neurological Exam Present: alert, normal reflexes, vision grossly intact - Detailed Neurological Exam: Coma Scale Eye Opening: Spontaneous - Routine Psychiatric Exam Present: agitated, unable to assess - Urinary Catheter Management Indwelling Urethral Catheter Cath placed during this visit: yes Urethral indwelling: Yes Reason for continuing: Acute urinary retention Insertion date: 06/28/18 Insertion time: 04:00 Assessment and Plan - Assessment (1) Acute pancreatitis Code(s): K85.90 - Acute pancreatitis without necrosis or infection, unspecified Status: Acute (2) UTI (urinary tract infection) Code(s): N39.0 - Urinary tract infection, site not specified Status: Acute - Assessment and Plan PANCREATITIS: IVF, CONSULT GI, advancing clears, UTI: IV ABX fevers: repeat cath ua, changed philip PUMallory SZ HYPONATREMIA: IVF, MONITOR AND RECHECK HYPOKALEMIA: ADD TO IVF, RECHECK ANEMIA: FOLLOWUP LABS DOWNS Dispo:hospice consulted. (1) Acute pancreatitis Qualifiers: Pancreatitis type: idiopathic
[2018-06-29 12:03] VITALS: BP 129/64; PULSE 93; RESP 16; TEMP 98.7; O2SAT 94
--- NOTE | 2018-06-29 14:41 | P.PNPAL ---
Reason for Visit Reason for visit: a. To assist with evaluation and management of symptoms including: Pain. b. To assist medical decision maker(s) with: better understanding of current medical conditions; weighing benefits/burdens of medical treatment options; making medical treatment decisions. Subjective Subjective/Interval History: Palliative care follow-up for further clarifications of goals of care, family support. Patient seen in ED, he was resting in bed in no acute distress. Awake , alert but not communicating. He was noted moaning but was unable to elaborate on complaint. Family reports that patient was moaning overnight, he was medicated x 4 with Henriette and x1 with morphine IV in the past 24 hours for abdominal pain. He was drinking fluids during my visit, intermittent coughing noted. Patient remains on nasal cannula 2 L, coarse breath sounds bilaterally. Met with patient's family to include her mother Kristel, Sister Arabella and brother Adalid. Family met with hospice trade show specialist and have elected to transition patient to comfort directed care, transfer to hospice care center for management of abdominal pain and shortness of breath. Family appreciative of visit today, all questions answered in great detail. Case discussed with hospice trade show specialist Rebeca. Objective Vital Signs: Vital Signs 06/28/18 16:50 06/28/18 19:27 06/28/18 23:42 Temperature 98.4 F 98.0 F Pulse Rate 97 H 95 H Respiratory Rate 16 17 17 Blood Pressure 134/70 128/68 Pulse Oximetry 92 L 95 06/29/18 04:28 06/29/18 04:32 06/29/18 05:10 Temperature 97.6 F 97.9 F Pulse Rate 70 99 H Respiratory Rate 16 20 20 Blood Pressure 147/65 H 125/72 Pulse Oximetry 98 93 L 06/29/18 08:00 06/29/18 12:00 Temperature 97.5 F L 98.7 F Pulse Rate 95 H 93 H Respiratory Rate 18 16 Blood Pressure 115/72 129/64 Pulse Oximetry 95 94 L Intake & Output 06/28/18 06/29/18 06/29/18 18:59 06:59 18:59 Intake Total 400 / 400 150 / 150 Balance 400 / 400 150 / 150 Intake: IV 400 / 400 150 / 150 KCl Inj 30 MEQ In NS Inj 1,000 400 / 400 ML @ 42 mls/hr IV.CONT .[facility] Rx#:[id number] Levaquin 750 mg Premix Inj 150 150 / 150 ML @ 100 mls/hr IV.SIG Q[facility] Rx#:[id number] Other: Date of Last Bowel Movement 06/24/18 06/24/18 Physical Exam: CONSTITUTIONAL/GENERAL: This is an adequately nourished patient, in no apparent distress. TUBES/LINES/DRAINS: Nasal cannula, PIV. SKIN: Pale. No jaundice, rashes, or lesions.No wounds seen anteriorly. Skin temperature appropriate. Not diaphoretic. HEAD: Atraumatic. Normocephalic. EYES: Pupils equal and round and reactive. No scleral icterus. No injection or drainage. Fundi not examined. ENT: Nose without bleeding or purulent drainage. Moist oral mucosa. NECK: Trachea midline. Supple, nontender. CARDIOVASCULAR: Regular rate and rhythm. Peripheral pulses symmetric. RESPIRATORY/CHEST: Symmetric, unlabored respirations. Coarse breath sounds bilaterally. On O2 via nasal cannula at 2L GASTROINTESTINAL: Abdomen soft, non-tender, nondistended. No guarding. Bowel sounds present. GENITOURINARY: Without palpable bladder distension. MUSCULOSKELETAL: Extremities without clubbing, cyanosis. Edema to bilateral lower extremities. No mottling or clubbing. NEUROLOGICAL: Awake alert, not communicating. PSYCHIATRIC: Appears calm. Diagnostic Tests Laboratory: Laboratory Results - last 72 hr 06/27/18 06/27/18 06/28/18 06:46 06:46 08:40 WBC 8.4 12.2 H RBC 3.81 L 3.63 L Hgb 12.9 L 12.4 L Hct 38.1 L 36.2 L MCV 100.2 H 99.7 MCH 33.9 34.2 H MCHC 33.8 34.3 RDW 15.1 15.4 Plt Count 253 269 MPV 7.5 8.2 Neut % (Auto) 76.7 H 89.3 H Lymph % (Auto) 11.6 2.4 L Walsh % (Auto) 11.0 H 7.9 Eos % (Auto) 0.2 0.1 Baso % (Auto) 0.5 0.3 Neut # (Auto) 6.4 10.9 H Lymph # (Auto) 1.0 0.3 L Walsh # (Auto) 0.9 1.0 H Eos # (Auto) 0.0 0.0 Baso # (Auto) 0.0 0.0 WBC Differential . . Differential Comment Auto diff final Auto diff final Sodium 135 L Potassium 3.4 L Chloride 96 L Carbon Dioxide 31.1 Anion Gap 8 BUN 9 Creatinine 0.88 Estimated GFR Greater than 89 Random Glucose 129 H Calcium 8.4 L Total Bilirubin 0.9 AST 58 H ALT 40 Alkaline Phosphatase 72 Total Protein 6.9 Albumin 2.4 L Lipase 382 06/28/18 06/29/18 06/29/18 08:40 09:25 09:25 WBC 8.4 RBC 3.41 L Hgb 11.7 L Hct 34.4 L MCV 101.1 H MCH 34.3 H MCHC 33.9 RDW 15.3 Plt Count 275 MPV 7.5 Neut % (Auto) 74.6 H Lymph % (Auto) 10.5 Walsh % (Auto) 13.3 H Eos % (Auto) 0.8 Baso % (Auto) 0.8 Neut # (Auto) 6.2 Lymph # (Auto) 0.9 L Walsh # (Auto) 1.1 H Eos # (Auto) 0.1 Baso # (Auto) 0.1 WBC Differential . Differential Comment Auto diff final Sodium 133 L 133 L Potassium 4.3 D 4.0 Chloride 96 L 94 L Carbon Dioxide 28.0 30.0 Anion Gap 9 9 BUN 12 14 Creatinine 0.95 0.89 Estimated GFR 82 L 88 L Random Glucose 127 H 109 H Calcium 8.4 L 8.7 Total Bilirubin 1.0 0.8 AST 40 H 47 H ALT 37 62 Alkaline Phosphatase 94 165 H Total Protein 6.7 6.8 Albumin 2.0 L 2.0 L Lipase 281 251 Result Diagrams: 06/29/18 09:25 06/29/18 09:25 Microbiology: Microbiology 06/24/18 06:40 Urine Culture - Final Clean Catch Urine No growth in 48 hours Assessment and Plan - Disease Oriented Problem List (1) Down syndrome (2) Severe dementia (3) Acute pancreatitis (4) UTI (urinary tract infection) - Symptom Scale (1) Pain 0-10 Scale: Unable to quantify Pertinent Non-Medical Issues: Psychosocial: Patient residing with mother living. Single, never . No biological children. He has 2 siblings. Working at [employer] until 2017. Spiritual: [employer]. Legal: No advance directives completed. Ethical issues impacting care: No ethical issues identified. Important Contacts: Mother Kristel , Sister Arabella Murillo Brother Adalid Prognosis: Mr. Yang is a 58-year-old male with a medical history significant for Down syndrome, dementia, history of GI bleed who presented to ED via EMS on 07/01 for evaluation of abdominal pain. Patient was found with UTI and acute pancreatitis of unknown etiology. Family reports progressive physical and cognitive decline, Down syndrome with severe dementia. Patient appears end-of- life at this time. Code Status: No Code DNR Plan: * CODE STATUS: DNR/DNI. * HEALTHCARE DECISION-MAKING: Patient unable to participating medical decision making in the setting of Down syndrome with severe dementia. Mother Tanai acting as proxy healthcare surrogate decision maker. * GOALS OF CARE: Family electing to transition patient to comfort-directed care with hospice in the setting of progressive physical and cognitive decline secondary to Down syndrome and severe dementia. Plan to discharge to hospice care center for symptom management of abdominal pain and respiratory distress. * SYMPTOMS: = Abdominal pain secondary to acute pancreatitis. GI following. Henriette 10/325 every 6 hours available as needed, has received 4 doses in the past 24 hours. Hydromorphone 1 mg IV of every 4 hours available as needed. None given in the past 24 hours. Morphine 2 mg IV every 4 hours available as needed. Has received 1 dose in the past 24 hours with good effect. Palliative care recommends discontinuation of morphine as morphine induces spasms in the sphincter of Oddi and should not be used in the setting of acute pancreatitis. Patient to continue with IV hydromorphone and oral Henriette as previously ordered. * Spiritual services offered and accepted. Request for weather anchor made. * Case discussed with hospice admissions nurse Rebeca. * Palliative care to follow-up for family support. Time Spent Total Floor Time (mins): 40 (Total time to include review of medical records, physical exam, goals of care conversation with family, case discussion with hospice admissions nurse.) >50% Time in Counseling or Coordination of Care: Yes (Total visit time = 40 minutes; > 50% spent counseling/coordinating care) Attestation Attestation: To help prompt me to consider important information that might be impacting today's encounter and assessment, information from prior notes written by myself or my colleagues may have been "brought forward" into today's note. My signature on this note, however, is an attestation that I personally performed the exam, history, and/or decision-making noted today, and, unless otherwise indicated, the interactions with patient, family, and staff as well as the review of records all occurred today. I also attest that the listed assessment and stated plan reflect my best clinical judgment today based on the combination of historical information, prior notes, and today's exam/ interactions. When time spent is documented, it refers only to time spent today by the signer, or if indicated, combined time spent today by collaborating physician/nurse practitioner.
[2018-06-29] MEDS: Potassium Chloride Inj 30 MEQ in Sod Chloride 0.9% Inj 1,000 ML IV.CONT SCH (16:30)
== END 2018-06-29 15:56 | disposition hospice, inpatient (51) ==
LOC: NEDA 03:30 → NEPC 03:30 → NEDA 08:50 → NEPFCDU 08:52
PROVIDERS: ADMIT Family Medicine; ATTEND Family Medicine
DX: F79 Unspecified intellectual disabilities; Z79.899 Other long term (current) drug therapy; N39.0 Urinary tract infection, site not specified; K85.90 Acute pancreatitis without necrosis or infection, unspecified; K27.9 Peptic ulcer, site unspecified, unspecified as acute or chronic, without hemorrhage or perforation; F03.90 Unspecified dementia, unspecified severity, without behavioral disturbance, psychotic disturbance, mood disturbance, and anxiety; E87.6 Hypokalemia; D64.9 Anemia, unspecified; J30.2 Other seasonal allergic rhinitis; Q90.9 Down syndrome, unspecified; E87.1 Hypo-osmolality and hyponatremia